=== PATIENT | male | born 2005 | race Two or more races ===

== ENCOUNTER 2024-11-12 06:19 | Inpatient (IN) | payer MEDICAID, SELFPAY ==
[2024-11-12] VITALS (63 sets, daily range): BP systolic 90–162; BP diastolic 48–123; PULSE 74–114; RESP 10–23; TEMP 35–36.8; O2SAT 97–100; BMI 25.6
[2024-11-12] MEDS: SODIUM CHLORIDE 0.9% 1000 ML 1,000 ML 999 ML IV ×2 (06:25→06:40)
[2024-11-12] MEDS: NALOXONE INJ 1 MG/ML SYRINGE 2 ML 2 MG IV (06:28)
[2024-11-12] MEDS: ROCURONIUM INJ 10 MG/ML VIAL 10 ML 50 MG IVP (06:30)
[2024-11-12] MEDS: ETOMIDATE INJ 2 MG/ML VIAL 10 ML 20 MG IVP (06:30)
--- NOTE | 2024-11-12 06:31 | XR_ITS ---
Examination: AP chest single view Technique one AP portable supine chest single view Exam date and time: November 12, 2024 0639 hrs. Indications: Altered mental status hypoxic respiratory failure today Findings: No significant cardiac enlargement Opacity in the left midlung consistent with pneumonia consider aspiration pneumonia Endotracheal tube tip 2.7 cm above daksha The orogastric tube is in the stomach satisfactory position Impression: Left midlung aspiration pneumonia Endotracheal tube tip 2.7 cm above daksha
--- NOTE | 2024-11-12 06:44 | XR_ITS ---
Examination: CT brain head without contrast. 2-D sagittal coronal reconstructions Date and time of exam:November 12, 2024 0700 hrs. Indications: Onset altered mental status today with hypoxic respiratory failure position. CTDI: vol (mGy):44.7 DLP: (mGycm):892 Technique: Multiple CT axial sections of the brain have been obtained, 5 mm slice thickness. Contrast has not been administered. 2-D sagittal, coronal reconstructions have been obtained Low dose protocols were performed. One or more of the following dose reduction techniques were used; automated exposure control, adjustment of the mA and/or KV according to patient size, use of iterative reconstruction technique. Findings: No significant ventricular enlargement. Intra-axial or extra-axial hemorrhage density is not seen. No mass effect or midline shift Basal cisterns are not remarkable. Fourth ventricle is midline. Cranial vault intact. Significant ethmoid sphenoid frontal left maxillary antral sinusitis Impression: Negative for acute hemorrhage, mass effect or midline shift As clinically warranted, brain MRI follow-up would best assess for anoxic/ischemic change
--- NOTE | 2024-11-12 06:44 | XR_ITS ---
Examination: CTA chest with intravenous contrast 2-D reconstructions 3-D reconstructions, vascular Date and time of exam: November 12, 2024 at 0719 hrs. Indications: Altered mental status with hypoxic respiratory failure postintubation this morning CTDI: vol (mGy) 7.14 DLP: (mGycm) 254 Technique: Multiple axial sections of the thorax have been obtained. 3 mm slice thickness, from below the hemidiaphragms to above the apices of the lungs. Mediastinal and lung density settings have been obtained. 2-D sagittal and coronal reconstructions. 3-D angiographic renderings, 3-D volume renderings, 3D post processing, vascular maximum intensity projections obtained. Contrast administered is 100 cc Isovue-370. Intravenous Low dose protocols were performed. One or more of the following dose reduction techniques were used; automated exposure control, adjustment of the mA and/or KV according to patient size, use of iterative reconstruction technique. Findings: Tracheal tube tip 2.6 cm above daksha Normal thoracic aorta Pulmonary artery segments are not enlarged, no pulmonary artery emboli Diffuse left lung pneumonia, severe in the left lower lobe, consider aspiration pneumonia No pulmonary edema Orogastric tube in the stomach Osseous structures are intact Impression: Tracheal tube tip 2.6 cm above daksha Negative for pulmonary artery emboli Diffuse left lung pneumonia, severe in the left lower lobe, consider aspiration pneumonia
--- NOTE | 2024-11-12 06:44 | XR_ITS ---
Examination: CT abdomen with intravenous contrast CT pelvis with intravenous contrast 2-D coronal reconstructions 2-D sagittal reconstructions Date and time of exam:November 12, 2024 at 0719 hrs. Indications: Altered mental status with acute hypoxic respiratory failure this morning. CTDI: vol (mGy) 7.14 DLP: (mGycm) 256 Technique: Multiple axial sections of the abdomen and pelvis have been obtained. 64 slice high-resolution scanner used. 3 mm axial sections have been obtained, post intravenous injection 100 cc Isovue-370 intravenous 2-D sagittal, coronal reconstructions obtained. Low dose protocols were performed. One or more of the following dose reduction techniques were used; automated exposure control, adjustment of the mA and/or KV according to patient size, use of iterative reconstruction technique. Findings: Prominent pneumonia left lower lobe No focal liver or splenic lesions No gallstones No pancreatic or adrenal mass No hydronephrosis Abdominal aorta intact, no free blood in the abdomen Negative for pneumoperitoneum Normal appendix No bowel obstruction Moderate to prominent stool in the rectosigmoid Normal seminal vesicles Normal prostate Urinary bladder Aguilar catheter with air in the urinary bladder No inguinal hernia defects Orogastric tube in the stomach Intact osseous structures Impression: Prominent left lower lobe pneumonia Normal appendix No bowel obstruction Orogastric tube in stomach satisfactory position
--- NOTE | 2024-11-12 06:45 | XR_ITS ---
Examination: CT cervical spine without contrast 2-D sagittal reconstructions 2-D coronal reconstructions 3-D reconstructions. Exam date and time:November 12, 2024 at 0700 hrs. Indications: Altered mental status this morning, with hypoxic respiratory failure, neck pain CTDI:vol (mGy) 7.80 DLP: (mGycm) 183 Technique: Multiple 2 mm axial sections of the cervical spine have been obtained. The coronal and sagittal reconstructions have been obtained. 3-D reconstructions have been obtained. Low dose protocols were performed. One or more of the following dose reduction techniques were used; automated exposure control, adjustment of the mA and/or KV according to patient size, use of iterative reconstruction technique. Findings: Axial sections demonstrate intact base of the skull. C1 exhibit satisfactory relationship to the odontoid. No acute cervical vertebral body fracture seen. Alignment posterior spinous processes satisfactory. Impression: No acute cervical fracture.
--- NOTE | 2024-11-12 06:45 | PC.NURSE ---
To ct scan via gurney on portable vent/monitor accompanied by RN and RT
--- NOTE | 2024-11-12 06:45 | PD.RESPROC ---
Procedures Procedure Date / Time 11/12/24 0645 Intubation Indication(s): acute Resp Failure and inability to protect airway Informed consent obtained: implied Time out done, and the following verified: correct patient, side and site, procedure, patient position and implants and/or equipment Sedative: etomidate Paralytic: rocuronium Laryngoscope: fiber optic video scope Assist device used: fiber optic device ET tube size: 8 Tube secured depth (cm): 23 Tube secured location: lips Tube placement confirmation: visualized tube passing through cords, equal breath sounds bilaterally, no breath sounds over epigastrium and confirmation by capnometry Patient tolerated procedure: no complications EBL(ml): 0 Intubation complications: none Additional comments: The patient required endotracheal intubation. The patient was given Etomidate?approx. 0.3 mg per kilogram and Rocuronium?approx. 1 mg per kilogram.Once the patient was adequately sedated and paralyzed, a?Mac 4?laryngoscope was used to directly visualize the cords. Using this direct visualization, a?8?endotracheal tube was then passed easily through the cords.This tube was inserted to?23 cm?at the lip.There was excellent color change on the end-tidal CO2 monitor. The patient was easily and adequately ventilated. There were appreciable breath sounds bilaterally with no breath sounds heard over the epigastrium. The tube was secured in the standard fashion. The patient tolerated this procedure well and there were no complications. Post-intubation chest x-ray demonstrates endotracheal tube placement at right position. Procedure was performed under supervision of ED physician, Dr.Kuah Dr. Santa MD, PGY 2
[2024-11-12 06:51] LABS: Lactate (Lactic Acid) 2.5 mMol/L (0.4-2.0)
[2024-11-12 06:51] LABS: Collection Type, Urine Catheter; Squamous Epithelial Cell,Urine 0 /hpf (0-5)
--- NOTE | 2024-11-12 06:52 | PC.NURSE ---
Do CT-Scan without labs per Dr. Castaneda.
[2024-11-12 07:02] LABS: Basophils % (Auto) 0 % (0-2.5); Eosinophils % (Auto) 0 % (0-10); Hematocrit 44.9 % (41.0-53.0); Hemoglobin 15.2 g/dL (13.5-16.0); Immature Granulocytes % (Auto) 1 % (0-0); Immature Granulocytes Auto 0.08 Thou/mm3 (0.00-0.00); Lymphocytes # (Auto) 1.2 Thou/mm3 (1.0-4.8); Lymphocytes % (Auto) 7 % (10-50); Mean Corpuscular HGB Conc 33.9 g/dl (31.0-37.0); Mean Corpuscular Hemoglobin 30.6 pg (25.0-35.0); Mean Corpuscular Volume 90 fL (80-100); Monocytes # (Auto) 0.7 Thou/mm3 (0.0-0.8); Monocytes % (Auto) 4 % (0-12); Neutrophils # (Auto) 15.3 Thou/mm3 (1.8-7.7); Neutrophils % (Auto) 88 % (37-80); Nucleated Red Blood Cell % 0 /100 WBC (0); Platelet Count 313 Thou/mm3 (140-440); RDW Standard Deviation 45.8 fL (35.1-43.9); Red Blood Count 4.97 Miln/mm3 (4.50-5.90); White Blood Count 17.3 Thou/mm3 (4.5-11.0)
[2024-11-12 07:10] LABS: Bilirubin,Urine Negative (Negative); Blood,Urine Negative (Negative); Clarity,Urine Clear (Clear/Hazy); Color,Urine Lt-Violet (Lt Yel-Yel); Culture Indicated,Urine Not Indicated; Glucose, Urine Negative (Negative); Ketones,Urine Negative (Negative); Leukocyte Esterase,Urine Negative (Negative); Nitrite,Urine Negative (Negative); Protein,Urine Negative (Neg - Trace); RBC,Urine 2 /hpf (0-3); Specific Gravity,Urine 1.006 (1.001-1.035); Urobilinogen,Urine Negative mg/dL (0.0-1.0); WBC,Urine 1 /hpf (0-5)
[2024-11-12 07:14] LABS: Partial Thromboplastin Time 25.8 Seconds (22.0-36.0); Prothrombin Time 10.7 Seconds (9.0-12.2)
[2024-11-12 07:17] LABS: Amphetamine/Methamp Scrn,U Negative (Negative); Barbiturate Screen,Urine Negative (Negative); Benzodiazepines Screen,Urine Negative (Negative); Benzoylecgonine Screen, Ur Negative (Negative); Fentanyl Screen,Urine Negative (Negative); Opiate Screen,Urine Negative (Negative); THC Screen,Urine Negative (Negative)
[2024-11-12] MEDS: PROPOFOL INJ 10 MG/ML VIAL 20 ML 100 MG IV (07:20)
[2024-11-12 07:29] LABS: Procalcitonin 0.06 ng/ml (0.0-0.49); Troponin I < 0.002 ng/mL (0.0-0.045)
[2024-11-12 07:32] LABS: Alcohol, Blood Medical 513.5 mg/dL (0-10.0)
[2024-11-12 08:02] LABS: Base Excess -5 (-3-3); HCO3 22 mEq/L (20-26); Inspired Oxygen, FIO2 100 %; O2 Saturation 100 % (91-98); PCO2 45 mmHg (32.0-48.0); PO2 250 mmHg (83-108); pH, Arterial 7.29 (7.35-7.45)
[2024-11-12 08:04] LABS: Allen Test Performed/OK; Puncture Site Left Radial
[2024-11-12] MEDS: PROPOFOL 1,000 MG IVPB 1,000 MG/100 ML VIAL 1.905 MG IV (08:48)
--- NOTE | 2024-11-12 09:16 | PD.EDAMS ---
Altered Mental Status RME/HPI General Chief Complaint: Altered Mental Status Stated Complaint: RESPIRATORY FAILURE Time Seen by Provider: 11/12/24 06:50 Arrival date/time: 11/12/24 06:19 RME / HPI RME / HPI narrative: DR. PAGE MAIN ED EVALUATION: 19 year old male presents to the Emergency Department [facility] with complaint of altered mentation, patient found by family. EMS gave Narcan with questionable response. Then, here we gave 2 more Narcan with no response. No ROS due to altered mentation. Related Data Allergies Allergy/AdvReac Type Severity Reaction Status Date / Time No Known Allergies Allergy Verified 11/12/24 06:53 Review of Systems Review of Systems ROS Unobtainable: unobtainable due to mental status Past Medical History Past Medical History CARDIAC: Negative Congestive Heart Failure RESPIRATORY: Negative Chronic Obstructive Pulmonary Disease (COPD) GENITOURINARY: Negative Renal Disease ENDOCRINE: Negative Diabetes Mellitus Type 1 or Diabetes Mellitus Type 2 Social History SMOKING STATUS: Unknown if ever smoked ED Exam Narrative Physical exam: GENERAL APPEARANCE: Unresponsive even with painful stimuli. HEENT: Pinpoint pupils bilaterally. Dry blood on the lips. Oropharynx clear. NECK: Supple without lymphadenopathy. HEART: Normal rate and regular rhythm, normal S1/S1, no m/r/g LUNGS: CTAB, moving air well. No crackles or wheezes are heard. ABDOMEN: Soft, nontender, nondistended with good bowel sounds heard. BACK: No midline C/T/L spine pain or deformity, No CVAT, no obvious deformity. EXTREMITIES: Without cyanosis, clubbing or edema. MUSCULOSKELETAL: No deformity. NEUROLOGICAL: Unresponsive, unobtainable. Skin: Warm and dry without any rash. Course Quality Measures none Orders Category Date Time Status CT Screening NOW Care 11/12/24 06:44 Completed Aguilar [Urinary Catheter] QS Care 11/12/24 06:40 Active Insert NG / OG tube NOW Care 11/12/24 06:34 Active Intubation NOW Care 11/12/24 06:[address] abdomen pelvis w con Stat Exams 11/12/24 06:[address] angio chest Stat Exams 11/12/24 06:[address] cervical spine wo con Stat Exams 11/12/24 06:[address] head/brain wo con Stat Exams 11/12/24 06:44 Completed XR chest 1V post procedure Stat Exams 11/12/24 06:31 Completed Alcohol, Blood Medical Stat Lab 11/12/24 06:27 Completed Arterial Blood Gas Stat Lab 11/12/24 07:51 Completed CBC [CBC] Stat Lab 11/12/24 06:27 Completed Drug Screen,Urine Stat Lab 11/12/24 06:31 Completed Lactate (Lactic Acid) Stat Lab 11/12/24 06:27 Completed PT [Prothrombin Time with INR] Stat Lab 11/12/24 06:27 Completed PTT [Partial Thromboplastin Time] Stat Lab 11/12/24 06:27 Completed Procalcitonin Stat Lab 11/12/24 06:27 Completed Sputum Culture and Gram Stain Routine Lab 11/12/24 07:00 Received Troponin I Stat Lab 11/12/24 06:27 Completed Urinalysis, C/S if Indicated Stat Lab 11/12/24 06:32 Completed Dextrose 5%-Water [D5w] 498 ml Med 11/12/24 07:00 Discontinued NALOXONE INJ (Syringe) [Narcan Inj (Syringe)] 2 mg IV 10 mls/hr Dextrose 5%-Water [D5w] 498 ml Med 11/12/24 07:00 Discontinued NALOXONE INJ (Syringe) [Narcan Inj (Syringe)] 2 mg IV 10 mls/hr Etomidate Inj [Amidate Inj] Med 11/12/24 06:18 Discontinued 20 mg .ROUTE .STK-MED ONE Etomidate Inj [Amidate Inj] Med 11/12/24 06:31 Discontinued 20 mg IVP X1 ONE NALOXONE INJ (Syringe) [Narcan Inj (Syringe)] Med 11/12/24 06:18 Discontinued 2 mg .ROUTE .STK-MED ONE NALOXONE INJ (Syringe) [Narcan Inj (Syringe)] Med 11/12/24 07:01 Discontinued 2 mg IV X1 ONE Propofol 1,000 mg Ivpb [Diprivan Ivpb] Med 11/12/24 06:46 Active 1,000 mg in 100 ml IV 5 mcg/kg/min Propofol Inj [Diprivan Inj] Med 11/12/24 07:08 Discontinued 100 mg IV X1 ONE Rocuronium Inj [Zemuron Inj] Med 11/12/24 06:19 Discontinued 100 mg .ROUTE .STK-MED ONE Rocuronium Inj [Zemuron Inj] Med 11/12/24 06:45 Discontinued 50 mg IVP X1 ONE Sodium Chloride 0.9% 1000 ml [Ns] 1,000 ml Med 11/12/24 06:47 Discontinued IV 999 mls/hr Sodium Chloride 0.9% 1000 ml [Ns] 1,000 ml Med 11/12/24 06:48 Discontinued IV 999 mls/hr Sodium Chloride Rt Twyla 10% [NS Rt Twyla 10%] Med 11/12/24 06:47 Discontinued 5 ml INH X1 ONE Mechanical [Volume Ventilator] Stat RT 11/12/24 Active Vital Signs Vital signs: Vital Signs Temperature 95 F L 11/12/24 06:22 Pulse Rate 92 11/12/24 06:22 Respiratory Rate 10 L 11/12/24 06:22 Blood Pressure 90/65 11/12/24 06:22 Pulse Oximetry (%) 100 11/12/24 06:22 Oxygen Delivery Method Cool Mist 11/12/24 06:22 Oxygen Flow Rate 15 11/12/24 06:22 Altered Mental Status MDM Narrative MDM Narrative:: IVianney am scribing for and in the presence of Dr. Page. Patient data External records reviewed:: EMS form Clinical information provided by:: EMS Social determinants that could affect healthcare access:: none Patient has the following chronic illnesses:: No known PMHx, surgeries, daily medications, or known allergies. How is presenting disease/condition affected by chronic disease/condition?: no chronic disease Evaluation data The following diagnostics were reviewed and interpreted by me:: lab results and radiology exam(s) Lab and/or radiology exams considered but not ordered:: none Interpretation Summary: Procedure(s): CT cervical spine wo con Accession Number(s): [id number] cc: Pascual Page MD; Santos Ortiz MD; NO PRIMARY/FAMILY,PHYSICIAN~ Examination: CT cervical spine without contrast 2-D sagittal reconstructions 2-D coronal reconstructions 3-D reconstructions. Exam date and time:November 12, 2024 at 0700 hrs. Indications: Altered mental status this morning, with hypoxic respiratory failure, neck pain CTDI:vol (mGy) 7.80 DLP: (mGycm) 183 Technique: Multiple 2 mm axial sections of the cervical spine have been obtained. The coronal and sagittal reconstructions have been obtained. 3-D reconstructions have been obtained. Low dose protocols were performed. One or more of the following dose reduction techniques were used; automated exposure control, adjustment of the mA and/or KV according to patient size, use of iterative reconstruction technique. Findings: Axial sections demonstrate intact base of the skull. C1 exhibit satisfactory relationship to the odontoid. No acute cervical vertebral body fracture seen. Alignment posterior spinous processes satisfactory. Impression: No acute cervical fracture. Dictated By: Santos Ortiz MD Procedure(s): CT head/brain wo con Accession Number(s): [id number] cc: Pascual Page MD; Santos Ortiz MD; NO PRIMARY/FAMILY,PHYSICIAN~ Examination: CT brain head without contrast. 2-D sagittal coronal reconstructions Date and time of exam:November 12, 2024 0700 hrs. Indications: Onset altered mental status today with hypoxic respiratory failure position. CTDI: vol (mGy):44.7 DLP: (mGycm):892 Technique: Multiple CT axial sections of the brain have been obtained, 5 mm slice thickness. Contrast has not been administered. 2-D sagittal, coronal reconstructions have been obtained Low dose protocols were performed. One or more of the following dose reduction techniques were used; automated exposure control, adjustment of the mA and/or KV according to patient size, use of iterative reconstruction technique. Findings: No significant ventricular enlargement. Intra-axial or extra-axial hemorrhage density is not seen. No mass effect or midline shift Basal cisterns are not remarkable. Fourth ventricle is midline. Cranial vault intact. Significant ethmoid sphenoid frontal left maxillary antral sinusitis Impression: Negative for acute hemorrhage, mass effect or midline shift As clinically warranted, brain MRI follow-up would best assess for anoxic/ischemic change Dictated By: Santos Ortiz MD Procedure(s): CT angio chest Accession Number(s): [id number] cc: Pascual Page MD; Santos Ortiz MD; NO PRIMARY/FAMILY,PHYSICIAN~ Examination: CTA chest with intravenous contrast 2-D reconstructions 3-D reconstructions, vascular Date and time of exam: November 12, 2024 at 0719 hrs. Indications: Altered mental status with hypoxic respiratory failure postintubation this morning CTDI: vol (mGy) 7.14 DLP: (mGycm) 254 Technique: Multiple axial sections of the thorax have been obtained. 3 mm slice thickness, from below the hemidiaphragms to above the apices of the lungs. Mediastinal and lung density settings have been obtained. 2-D sagittal and coronal reconstructions. 3-D angiographic renderings, 3-D volume renderings, 3D post processing, vascular maximum intensity projections obtained. Contrast administered is 100 cc Isovue-370. Intravenous Low dose protocols were performed. One or more of the following dose reduction techniques were used; automated exposure control, adjustment of the mA and/or KV according to patient size, use of iterative reconstruction technique. Findings: Tracheal tube tip 2.6 cm above daksha Normal thoracic aorta Pulmonary artery segments are not enlarged, no pulmonary artery emboli Diffuse left lung pneumonia, severe in the left lower lobe, consider aspiration pneumonia No pulmonary edema Orogastric tube in the stomach Osseous structures are intact Impression: Tracheal tube tip 2.6 cm above daksha Negative for pulmonary artery emboli Diffuse left lung pneumonia, severe in the left lower lobe, consider aspiration pneumonia Dictated By: Santos Ortiz MD Procedure(s): CT abdomen pelvis w con Accession Number(s): [id number] cc: Pascual Page MD; Santos Ortiz MD; NO PRIMARY/FAMILY,PHYSICIAN~ Examination: CT abdomen with intravenous contrast CT pelvis with intravenous contrast 2-D coronal reconstructions 2-D sagittal reconstructions Date and time of exam:November 12, 2024 at 0719 hrs. Indications: Altered mental status with acute hypoxic respiratory failure this morning. CTDI: vol (mGy) 7.14 DLP: (mGycm) 256 Technique: Multiple axial sections of the abdomen and pelvis have been obtained. 64 slice high-resolution scanner used. 3 mm axial sections have been obtained, post intravenous injection 100 cc Isovue-370 intravenous 2-D sagittal, coronal reconstructions obtained. Low dose protocols were performed. One or more of the following dose reduction techniques were used; automated exposure control, adjustment of the mA and/or KV according to patient size, use of iterative reconstruction technique. Findings: Prominent pneumonia left lower lobe No focal liver or splenic lesions No gallstones No pancreatic or adrenal mass No hydronephrosis Abdominal aorta intact, no free blood in the abdomen Negative for pneumoperitoneum Normal appendix No bowel obstruction Moderate to prominent stool in the rectosigmoid Normal seminal vesicles Normal prostate Urinary bladder Aguilar catheter with air in the urinary bladder No inguinal hernia defects Orogastric tube in the stomach Intact osseous structures Impression: Prominent left lower lobe pneumonia Normal appendix No bowel obstruction Orogastric tube in stomach satisfactory position Dictated By: Santos Ortiz MD Procedure(s): XR chest 1V post procedure Accession Number(s): [id number] cc: Pascual Page MD; Santos Ortiz MD; NO PRIMARY/FAMILY,PHYSICIAN~ Examination: AP chest single view Technique one AP portable supine chest single view Exam date and time: November 12, 2024 0639 hrs. Indications: Altered mental status hypoxic respiratory failure today Findings: No significant cardiac enlargement Opacity in the left midlung consistent with pneumonia consider aspiration pneumonia Endotracheal tube tip 2.7 cm above daksha The orogastric tube is in the stomach satisfactory position Impression: Left midlung aspiration pneumonia Endotracheal tube tip 2.7 cm above daksha Dictated By: Santos Ortiz MD Medications / Prescriptions Medications or Prescriptions considered but not ordered:: none Medication administrations:: Medication Administration History Propofol (Diprivan Ivpb) 1,000 mg in 100 mls @ 1.905 mls/hr IV .Q24H PRN; Protocol PRN Reason: PER PROTOCOL Stop: 12/12/24 06:45 Last Titration: 11/12/24 10:25 Dose: 25 mcg/kg/min, 9.525 mls/hr Documented By: Titration: 11/12/24 10:02 Dose: 10 mcg/kg/min, 3.81 mls/hr Documented By: Admin: 11/12/24 08:48 Dose: 5 mcg/kg/min, 1.905 mls/hr Documented By: CHACORTA Co-signed By: MARINA Multivitamins/Minerals 10 ml/ (Sodium Chloride) 1,010 mls @ 100 mls/hr IV X1 ONE Stop: 11/12/24 19:50 Last Admin: 11/12/24 10:24 Dose: 100 mls/hr Documented By: CHACORTA Pharmacy Consult (Pharmacy Renal Dose Adjustment 1 Ea) 1 each XX QDAY PRN PRN Reason: CONSULT Stop: 12/12/24 08:59 Discontinued Medications Etomidate (Etomidate Inj 2 Mg/Ml Vial 10 Ml) Confirm Administered Dose 20 mg .ROUTE .STK-MED ONE Stop: 11/12/24 06:19 Last Admin: 11/12/24 06:51 Dose: Not Given Documented By: EE Non-Admin Reason: Override Medication Etomidate (Etomidate Inj 2 Mg/Ml Vial 10 Ml) 20 mg IVP X1 ONE Stop: 11/12/24 06:32 Last Admin: 11/12/24 06:30 Dose: 20 mg Documented By: TIM Sodium Chloride (Ns) 1,000 mls @ 999 mls/hr IV .Q1H1M ONE Stop: 11/12/24 07:47 Last Infusion: 11/12/24 07:37 Dose: Infused Documented By: Admin: 11/12/24 06:25 Dose: 999 mls/hr Documented By: TIM Sodium Chloride (Ns) 1,000 mls @ 999 mls/hr IV .Q1H1M ONE Stop: 11/12/24 07:48 Last Infusion: 11/12/24 09:18 Dose: Infused Documented By: Admin: 11/12/24 06:40 Dose: 999 mls/hr Documented By: TIM Naloxone HCl 2 mg/ Dextrose 500 mls @ 10 mls/hr IV .Q24H [facility] Stop: 12/12/24 06:59 Naloxone HCl 2 mg/ Dextrose 500 mls @ 10 mls/hr IV .Q24H [facility] Stop: 12/12/24 06:59 Naloxone HCl (Naloxone Inj 1 Mg/Ml Syringe 2 Ml) Confirm Administered Dose 2 mg .ROUTE .STK-MED ONE Stop: 11/12/24 06:19 Last Admin: 11/12/24 06:51 Dose: Not Given Documented By: EE Non-Admin Reason: Override Medication Naloxone HCl (Naloxone Inj 1 Mg/Ml Syringe 2 Ml) 2 mg IV X1 ONE Stop: 11/12/24 07:02 Last Admin: 11/12/24 06:28 Dose: 2 mg Documented By: DAREN Propofol (Propofol Inj 10 Mg/Ml Vial 20 Ml) 100 mg IV X1 ONE Stop: 11/12/24 07:09 Last Admin: 11/12/24 07:20 Dose: 100 mg Documented By: MARINA Rocuronium [place] (Rocuronium Inj 10 Mg/Ml Vial 10 Ml) Confirm Administered Dose 100 mg .ROUTE .STK-MED ONE Stop: 11/12/24 06:20 Last Admin: 11/12/24 06:51 Dose: Not Given Documented By: TIM Non-Admin Reason: Override Medication Rocuronium [place] (Rocuronium Inj 10 Mg/Ml Vial 10 Ml) 50 mg IVP X1 ONE Stop: 11/12/24 06:46 Last Admin: 11/12/24 06:30 Dose: 50 mg Documented By: TIM Co-signed By: GENOVEVA Sodium Chloride (Sodium Chloride Rt 10% 15 Ml Nebu) 5 ml INH X1 ONE Stop: 11/12/24 06:48 Last Admin: 11/12/24 10:53 Dose: Not Given Documented By: KAMARI Non-Admin Reason: did not need see above Consultations Consultation(s) initiated? (list below): Yes Consultation #1 (Physician, Specialty, Details): Discussed test HPI, PMHx, lab, radiology results and/or management with Dr. Gee Aguiar. Will admit for further evaluation and management. Accepts patient for admission to ICU. Time: 08:40 Diagnosis Differential diagnosis altered mental status: alcoholic intoxication, altered mental status and subarachnoid hemorrhage Most likely diagnosis given after review of the tests above:: Alcohol intoxication Aspiration pneumonia Respiratory failure Admission Indicated Admission indicated?: indicated Admission Request Was there a request for admission?: Yes Admission Attestation Admission request attestation: Discussed case with [] from Hospitalist service regarding admission. Discussed patients ED course, exam findings, labs, and radiology results. The Hospitalist [agrees,declines] to accept the patient for admission. Disposition Plan Disposition Plan: Admit Critical Care Time Critical Care Time Critical Care Time: Yes Total Critical Care Time (min.): 35 Attestation: The high probability of sudden, clinically significant deterioration in the patient?s condition required the highest level of my preparedness to intervene urgently. The services I provided to this patient were to treat and/or prevent clinically significant deterioration. Services included the following: chart data review, reviewing nursing notes and/or old charts, documentation time, business system consultant collaboration regarding findings and treatment options, medication orders and management, direct patient care, vital sign assessments and ordering, interpreting and reviewing diagnostic studies and lab tests. Aggregate critical care time includes only time during which I was engaged in work directly related to the patient?s care, as described above, whether at bedside or elsewhere in the Emergency Department. It did not include time spent performing other reported procedures or the services of residents, students, nurses or physician assistants. Discharge Plan Plan Patient Disposition: Admit Acute Care w/in Hospital Problem List Clinical Impression: Alcoholic intoxication, Aspiration pneumonia, Respiratory failure
[2024-11-12 09:46] LABS: Basophils % (Auto) 0 % (0-2.5); Eosinophils # (Auto) 0.1 Thou/mm3 (0.0-0.5); Eosinophils % (Auto) 0 % (0-10); Hematocrit 43.5 % (41.0-53.0); Hemoglobin 15.2 g/dL (13.5-16.0); Immature Granulocytes % (Auto) 1 % (0-0); Immature Granulocytes Auto 0.12 Thou/mm3 (0.00-0.00); Lymphocytes # (Auto) 0.7 Thou/mm3 (1.0-4.8); Lymphocytes % (Auto) 4 % (10-50); Mean Corpuscular HGB Conc 34.9 g/dl (31.0-37.0); Mean Corpuscular Volume 89 fL (80-100); Monocytes # (Auto) 0.8 Thou/mm3 (0.0-0.8); Monocytes % (Auto) 4 % (0-12); Neutrophils # (Auto) 17.2 Thou/mm3 (1.8-7.7); Neutrophils % (Auto) 91 % (37-80); Nucleated Red Blood Cell % 0 /100 WBC (0); Platelet Count 254 Thou/mm3 (140-440); RDW Standard Deviation 45.5 fL (35.1-43.9); White Blood Count 18.9 Thou/mm3 (4.5-11.0)
[2024-11-12 09:49] LABS: Reflex Lactate? Y
[2024-11-12 10:05] LABS: Alanine Aminotransferase 23 U/L (10-49); Albumin, Serum 4.1 gm/dL (3.5-5.0); Albumin/Globulin Ratio 1.5 (1.2-2.2); Alkaline Phosphatase 105 U/L (46-116); Anion Gap 14 (7-16); Aspartate Amino Transferase 36 U/L (0-34); BUN/Creatinine Ratio 12 Ratio (12-20); Bilirubin,Total 0.5 mg/dL (0.3-1.2); Blood Urea Nitrogen 6 mg/dL (9-23); Calcium 7.8 mg/dL (8.3-10.6); Calcium (Corrected) 7.8 mg/dL (8.5-10.1); Chloride 107 mMol/L (98-107); Creatine Kinase 310 U/L (34-171); Creatinine (Component) 0.5 mg/dL (0.6-1.3); Globulin 2.7 gm/dL (2.3-3.5); Glucose 118 mg/dL (74-106); Magnesium 1.8 mg/dL (1.6-2.6); Osmolality,Calculated 278 (275-295); Phosphorous 2.4 mg/dL (2.4-5.1); Potassium 3.8 mMol/L (3.4-5.1); Sodium 140 mMol/L (136-145); Total Protein 6.8 gm/dL (5.7-8.2); eGFR > 60 See Note
[2024-11-12] MEDS: MULTIVITAMIN INJ 10 ML in SODIUM CHLORIDE 0.9% 1000 ML 1,000 ML 100 ML IV (10:24)
--- NOTE | 2024-11-12 10:55 | PD.RESHP ---
Documentation for date of: 11/12/24 [facility] History of Present Illness History of present illness: Anish Ruiz is a 19-year-old male with no known past medical history who presented to the ED on 11/12 after being found unconscious. Per aunt at bedside, patient was at a friend's house and drank one bottle of hard liquor of unknown amount. The next morning, he was found unresponsive by his aunt but experiencing episodes of hemoptysis, prompting her to call EMS. He was given 2 doses of narcan on scene without response. Per aunt, he has one to two beers per week. Upon arrival to ED, patient was intubated due to inability to protect airways, sedated on propofol drip, and given 2 L boluses of NS. Imaging showed diffuse left-sided pneumonia (severe in LLL), likely aspiration given clinical picture and started on ceftriaxone. Otherwise, CT head, CT A/P, and CT cervical spine negative. Other than EtOH levels of 513 u-tox negative, LFTs wnl, lactate 2.3, and total CK 310. Admitted to ICU for further management. Review of Systems Review of Systems ROS Unobtainable: due to endotracheal tube Exam Vital Signs Temp Pulse Resp BP Pulse Ox O2 Del Method O2 Flow Rate 96.1 F L 89 16 106/62 100 Mechanical Ventilation 15 11/12/24 07:55 11/12/24 10:23 11/12/24 07:55 11/12/24 10:23 11/12/24 10:23 11/12/24 07:55 11/12/24 06:22 FiO2 35 11/12/24 10:23 Narrative Exam General: intubated, sedated, and mechanically ventilated HEENT: NC/AT, mucous membranes moist, bilateral sclera anicteric Cardiovascular: regular rate and rhythm, S1/S2 present, no murmurs appreciated Pulmonary: clear to auscultation bilaterally, no rales/rhonchi/wheezes Abdominal: soft, non-tender, non-distended, no rebound/guarding, normal bowel sounds present Musculoskeletal: normal ROM, no peripheral edema Skin: warm and dry, intact, no rashes Neuro: GCS 3T Results: Labs 11/12/24 09:30 11/12/24 09:30 Labs: Short CBC 11/12/24 11/12/24 Range/Units 06:27 09:30 WBC 17.3 H 18.9 H (4.5-11.0) Thou/mm3 Hgb 15.2 15.2 (13.5-16.0) g/dL Hct 44.9 43.5 (41.0-53.0) % Plt Count 313 254 D (140-440) Thou/mm3 BMP 11/12/24 11/12/24 06:27 09:30 Sodium Cancelled 140 Potassium Cancelled 3.8 Chloride Cancelled 107 Carbon Dioxide Cancelled 19.0 L BUN Cancelled 6 L Creatinine Cancelled 0.5 L Glucose Cancelled 118 H Calcium Cancelled 7.8 L Cardiac Enzymes 11/12/24 11/12/24 Range/Units 06:27 09:30 Total Creatine Kinase 310 H (34-171) U/L Troponin I < 0.002 (0.0-0.045) ng/mL Liver Function 11/12/24 Range/Units 09:30 Total Bilirubin 0.5 (0.3-1.2) mg/dL AST 36 H (0-34) U/L ALT 23 (10-49) U/L Alkaline Phosphatase 105 (46-116) U/L Albumin 4.1 (3.5-5.0) gm/dL Urine 11/12/24 Range/Units 06:32 Urine Color Lt-Sofi A (Lt Yel-Yel) Urine Clarity Clear (Clear/Hazy) Urine pH 6.0 (5.0-7.0) Ur Specific [place] 1.006 (1.001-1.035) Urine Protein Negative (Neg - Trace) Urine Glucose (UA) Negative (Negative) ABG Interpretation ABG results: 11/12/24 07:51 ABG pH 7.29 L ABG pCO2 45 ABG pO2 250 H ABG HCO3 22 ABG O2 Saturation 100 H ABG Base Excess -5 L Quality Measures Quality Measures VTE prophylaxis Medications Home Medications and Allergies Allergies Allergy/AdvReac Type Severity Reaction Status Date / Time No Known Allergies Allergy Verified 11/12/24 06:53 Visit Medications Propofol (Diprivan Ivpb) 1,000 mg in 100 mls @ 1.905 mls/hr IV .Q24H PRN; Protocol PRN Reason: PER PROTOCOL Stop: 12/12/24 06:45 Last Titration: 11/12/24 10:25 Dose: 25 mcg/kg/min, 9.525 mls/hr Multivitamins/Minerals 10 ml/ (Sodium Chloride) 1,010 mls @ 100 mls/hr IV X1 ONE Stop: 11/12/24 19:50 Last Admin: 11/12/24 10:24 Dose: 100 mls/hr Pharmacy Consult (Pharmacy Renal Dose Adjustment 1 Ea) 1 each XX QDAY PRN PRN Reason: CONSULT Stop: 12/12/24 08:59 Discontinued Medications Etomidate (Etomidate Inj 2 Mg/Ml Vial 10 Ml) 20 mg IVP X1 ONE Stop: 11/12/24 06:32 Last Admin: 11/12/24 06:30 Dose: 20 mg Sodium Chloride (Ns) 1,000 mls @ 999 mls/hr IV .Q1H1M ONE Stop: 11/12/24 07:47 Last Infusion: 11/12/24 07:37 Dose: Infused Sodium Chloride (Ns) 1,000 mls @ 999 mls/hr IV .Q1H1M ONE Stop: 11/12/24 07:48 Last Infusion: 11/12/24 09:18 Dose: Infused Naloxone HCl 2 mg/ Dextrose 500 mls @ 10 mls/hr IV .Q24H [facility] Stop: 12/12/24 06:59 Naloxone HCl 2 mg/ Dextrose 500 mls @ 10 mls/hr IV .Q24H [facility] Stop: 12/12/24 06:59 Naloxone HCl (Naloxone Inj 1 Mg/Ml Syringe 2 Ml) 2 mg IV X1 ONE Stop: 11/12/24 07:02 Last Admin: 11/12/24 06:28 Dose: 2 mg Propofol (Propofol Inj 10 Mg/Ml Vial 20 Ml) 100 mg IV X1 ONE Stop: 11/12/24 07:09 Last Admin: 11/12/24 07:20 Dose: 100 mg Rocuronium [place] (Rocuronium Inj 10 Mg/Ml Vial 10 Ml) 50 mg IVP X1 ONE Stop: 11/12/24 06:46 Last Admin: 11/12/24 06:30 Dose: 50 mg Sodium Chloride (Sodium Chloride Rt 10% 15 Ml Nebu) 5 ml INH X1 ONE Stop: 11/12/24 06:48 Last Admin: 11/12/24 10:53 Dose: Not Given Assessment & Plan Plan Anish Ruiz is a 19-year-old male with no known past medical history who presented to the ED on 11/12 after being found unconscious. Per aunt at bedside, patient was at a friend's house and drank one bottle of hard liquor of unknown amount. The next morning, he was found unresponsive by his aunt but experiencing episodes of hemoptysis, prompting her to call EMS. He was given 2 doses of narcan on scene without response. Per aunt, he has one to two beers per week. Upon arrival to ED, patient was intubated due to inability to protect airways, sedated on propofol drip, and given 2 L boluses of NS. Imaging showed diffuse left-sided pneumonia (severe in LLL), likely aspiration given clinical picture and started on ceftriaxone. Otherwise, CT head, CT A/P, and CT cervical spine negative. Other than EtOH levels of 513 u-tox negative, LFTs wnl, lactate 2.3, and total CK 310. Admitted to ICU for further management. Neurological #Sedated on propofol ? RASS goal of -3 Cardiovascular No acute/active disease Pulmonary #Intubated and mechanically ventilated due to inability to protect airway ? Vent settings: A/CMV, VC, VT 400, RR 20, PEEP 5, FiO2 35% -> 30% Gastrointestinal #Severe ethanol intoxication requiring intubation Found unresponsive on scene and intubated in ED on 11/12. Per aunt, patient does not consume significant amount of alcohol regularly which is consistent with normal LFTs. EtOH levels 513. ? Banana bag Renal # Anion gap metabolic acidosis, secondary to #Lactic acidosis in setting of ethanol intoxication ABG on 11/12: pH 7.29, pCO2 45, pO2 250 S/p 2 L NS in ED Lactate 2.5 -> 2.3 -> 2.6 ? Follow-up lactate #Hypocalcemia ? Follow-up AM labs after banana bag Heme/onc #Leukocytosis in setting of aspiration pneumonia ? See infectious disease below Endocine No acute/active disease Infectious disease #Aspiration pneumonia vs pneumonitis Imaging shows left-lung pneumona, likely aspiration in setting of severe alcohol intoxication. No recorded fevers, although hypothermic at 95 ?F and initial WBC 17.3 and up trended to 18.9. ? Ceftriaxone 1 g IV daily ? Follow-up sputum culture (11/12) Hospital management: Disposition: intubated in ICU due to severe alcohol intoxication Drips: propofol Fluids: banana bag Diet: NPO Lines: PIV DVT prophylaxis: SCD given episodes of hemoptysis Aguilar: placed CODE STATUS: full code ----- Plan discussed with attending physician Dr. Britt Aguiar MD PGY-1 Internal Medicine
[2024-11-12 11:19] LABS: Lactic Acid, 3 HR 2.3 mMol/L (0.4-2.0)
[2024-11-12] MEDS: cefTRIAXone 1,000 MG in SODIUM CHLORIDE 0.9% (Popper) 50 ML 100 MG IV (11:56)
[2024-11-12 17:42] LABS: Lactate (Lactic Acid) 2.6 mMol/L (0.4-2.0)
[2024-11-12] MEDS: PROPOFOL 1,000 MG IVPB 1,000 MG/100 ML VIAL 17.146 MG IV (19:00)
[2024-11-12 20:41] LABS: Reflex Lactate? Y
[2024-11-12 21:15] LABS: Lactic Acid, 3 HR 2.9 mMol/L (0.4-2.0)
[2024-11-13] VITALS (73 sets, daily range): BP systolic 116–147; BP diastolic 55–93; PULSE 77–112; RESP 16–100; TEMP 36.8–37.7; O2SAT 95–100
[2024-11-13] MEDS: PROPOFOL 1,000 MG IVPB 1,000 MG/100 ML VIAL 19.051 MG IV (04:00)
[2024-11-13 04:55] LABS: Base Excess 0 (-3-3); HCO3 24 mEq/L (20-26); Inspired Oxygen, FIO2 30 %; O2 Saturation 99 % (91-98); PCO2 37 mmHg (32.0-48.0); PO2 107 mmHg (83-108); pH, Arterial 7.42 (7.35-7.45)
[2024-11-13 04:56] LABS: Allen Test Performed/OK; Puncture Site Right Radial
[2024-11-13 06:04] LABS: Basophils # (Auto) 0.1 Thou/mm3 (0.0-0.2); Basophils % (Auto) 0 % (0-2.5); Eosinophils % (Auto) 0 % (0-10); Hematocrit 41.7 % (41.0-53.0); Hemoglobin 14.2 g/dL (13.5-16.0); Immature Granulocytes % (Auto) 1 % (0-0); Immature Granulocytes Auto 0.08 Thou/mm3 (0.00-0.00); Lymphocytes # (Auto) 0.7 Thou/mm3 (1.0-4.8); Lymphocytes % (Auto) 4 % (10-50); Mean Corpuscular HGB Conc 34.1 g/dl (31.0-37.0); Mean Corpuscular Hemoglobin 30.5 pg (25.0-35.0); Mean Corpuscular Volume 90 fL (80-100); Monocytes # (Auto) 0.9 Thou/mm3 (0.0-0.8); Monocytes % (Auto) 5 % (0-12); Neutrophils # (Auto) 14.4 Thou/mm3 (1.8-7.7); Neutrophils % (Auto) 90 % (37-80); Nucleated Red Blood Cell % 0 /100 WBC (0); Platelet Count 244 Thou/mm3 (140-440); RDW Standard Deviation 45.8 fL (35.1-43.9); Red Blood Count 4.66 Miln/mm3 (4.50-5.90); White Blood Count 16.1 Thou/mm3 (4.5-11.0)
[2024-11-13 06:32] LABS: Alanine Aminotransferase 14 U/L (10-49); Albumin, Serum 4.2 gm/dL (3.5-5.0); Albumin/Globulin Ratio 1.6 (1.2-2.2); Alkaline Phosphatase 102 U/L (46-116); Anion Gap 14 (7-16); Aspartate Amino Transferase 31 U/L (0-34); BUN/Creatinine Ratio 22 Ratio (12-20); Bilirubin,Total 0.4 mg/dL (0.3-1.2); Blood Urea Nitrogen 13 mg/dL (9-23); Calcium 9.5 mg/dL (8.3-10.6); Calcium (Corrected) 9.5 mg/dL (8.5-10.1); Carbon Dioxide 21.1 mMol/L (20.0-31.0); Chloride 104 mMol/L (98-107); Creatinine (Component) 0.6 mg/dL (0.6-1.3); Estimated Creatinine Clearance 119.7 mL/min (>60); Globulin 2.6 gm/dL (2.3-3.5); Glucose 89 mg/dL (74-106); Osmolality,Calculated 276 (275-295); Phosphorous 2.2 mg/dL (2.4-5.1); Sodium 139 mMol/L (136-145); Total Protein 6.8 gm/dL (5.7-8.2); eGFR > 60 See Note
[2024-11-13] MEDS: cefTRIAXone 1,000 MG in SODIUM CHLORIDE 0.9% (Popper) 50 ML 100 MG IV (08:14)
--- NOTE | 2024-11-13 10:10 | PD.RESPRO ---
Documentation for date of: 11/13/24 Subjective Subjective Interval history: Anish Ruiz is a 19-year-old male with no known past medical history who presented to the ED on 11/12 after being found unconscious. Per aunt at bedside, patient was at a friend's house and drank one bottle of hard liquor of unknown amount. The next morning, he was found unresponsive by his aunt but experiencing episodes of hemoptysis, prompting her to call EMS. He was given 2 doses of narcan on scene without response. Per aunt, he has one to two beers per week. Upon arrival to ED, patient was intubated due to inability to protect airways, sedated on propofol drip, and given 2 L boluses of NS. Imaging showed diffuse left-sided pneumonia (severe in LLL), likely aspiration given clinical picture and started on ceftriaxone. Otherwise, CT head, CT A/P, and CT cervical spine negative. Other than EtOH levels of 513 u-tox negative, LFTs wnl, lactate 2.3, and total CK 310. Admitted to ICU for further management. 11/13/24: Overnight, patient had a total of 1 L output, 3 L since hospital stay. Patient's Tmax overnight was 99.7. Patient was on max rate of propofol, however was doing well on oxygen requirements, and decided to have a SBT. Patient successfully extubated around 9 AM. Patient is currently on 1 to 2 L nasal cannula. At bedside, patient's and mentioned that patient drink from a bottle of hard liquor, and drinking with friends and later experienced hemoptysis. EMS was called after patient started becoming unresponsive. Will have patient undergo swallow screen at bedside and start diet. Patient's phosphorus today was low, will replace with IV replacement. Pending repeat lactic acid. Patient's Gram stain also grew GPC and gram negative to blood cocci, and will continue with ceftriaxone 1 g for total of 5 days. Pending final sputum culture. Exam Vital Signs Temp Pulse Resp BP Pulse Ox O2 Del Method O2 Flow Rate 98.7 F 110 H 26 H 141/82 H 95 Mechanical Ventilation 15 11/13/24 08:00 11/13/24 09:15 11/13/24 09:15 11/13/24 09:15 11/13/24 09:15 11/13/24 08:00 11/12/24 06:22 FiO2 30 11/13/24 08:00 Narrative Exam General Appearance: Pt in mild acute distress, occasionally coughing, on 1 to 2 L nasal cannula. Alert and awake. HEENT: NC/AT, no scleral icterus, no conjunctival pallor, dry mucous membranes Lungs: CTAB, no wheezes or crackles appreciated CVS: Tachycardic, S1/S2 heard, no murmurs or rubs appreciated ABD: Soft, non-tender, non-distended, BS + in all 4 quadrants EXT: no deformity/edema/lesions/cyanosis/clubbing, radial pulses 2+ BL, DP pulses 2 + BL SKIN: Skin exam normal without any rashes. Neuro: A&O x 3 to name, place, date. No gross neurological deficits. Motor and sensory grossly intact in B/L UL and LL. Psych: Appropriate mood and affect Objective Labs 11/13/24 05:11 11/13/24 05:11 Labs: Laboratory Results - last 24 hr 11/12/24 11/12/24 11/12/24 11:01 17:31 20:54 WBC RBC Hgb Hct MCV MCH MCHC RDW Std Deviation Plt Count Neut % (Auto) Lymph % (Auto) [place] % (Auto) Eos % (Auto) Baso % (Auto) Neut # (Auto) Lymph # (Auto) [place] # (Auto) Eos # (Auto) Baso # (Auto) Immature Gran # (Auto) Absolute Nucleated RBC Immature Gran % Nucleated RBC % Puncture Site ABG pH ABG pCO2 ABG pO2 ABG HCO3 ABG O2 Saturation ABG Base Excess FiO2 Sodium Potassium Chloride Carbon Dioxide Anion Gap BUN Creatinine Estim Creat Clear Calc eGFR BUN/Creatinine Ratio Glucose Calculated Osmolality Lactic Acid 2.3 H 2.6 H Cancelled Calcium Corrected Calcium Phosphorus Magnesium Total Bilirubin AST ALT Alkaline Phosphatase Total Protein Albumin Globulin Albumin/Globulin Ratio 11/12/24 11/13/24 11/13/24 20:54 04:38 05:11 WBC 16.1 H RBC 4.66 Hgb 14.2 Hct 41.7 MCV 90 MCH 30.5 MCHC 34.1 RDW Std Deviation 45.8 H Plt Count 244 Neut % (Auto) 90 H Lymph % (Auto) 4 L [place] % (Auto) 5 Eos % (Auto) 0 Baso % (Auto) 0 Neut # (Auto) 14.4 H Lymph # (Auto) 0.7 L [place] # (Auto) 0.9 H Eos # (Auto) 0.0 Baso # (Auto) 0.1 Immature Gran # (Auto) 0.08 H Absolute Nucleated RBC 0.00 Immature Gran % 1 H Nucleated RBC % 0 Puncture Site Right Radial ABG pH 7.42 D ABG pCO2 37 ABG pO2 107 D ABG HCO3 24 ABG O2 Saturation 99 H ABG Base Excess 0 FiO2 30 Sodium 139 Potassium 4.0 Chloride 104 Carbon Dioxide 21.1 Anion Gap 14 BUN 13 Creatinine 0.6 Estim Creat Clear Calc 119.7 eGFR > 60 BUN/Creatinine Ratio 22 H Glucose 89 Calculated Osmolality 276 Lactic Acid 2.9 H Calcium 9.5 D Corrected Calcium 9.5 D Phosphorus 2.2 L Magnesium 2.0 Total Bilirubin 0.4 AST 31 ALT 14 Alkaline Phosphatase 102 Total Protein 6.8 Albumin 4.2 Globulin 2.6 Albumin/Globulin Ratio 1.6 ABG Interpretation ABG results: 11/12/24 11/13/24 07:51 04:38 ABG pH 7.29 L 7.42 D ABG pCO2 45 37 ABG pO2 250 H 107 D ABG HCO3 22 24 ABG O2 Saturation 100 H 99 H ABG Base Excess -5 L 0 Quality Measures Quality Measures VTE prophylaxis Assessment & Plan Assessment Current Active Medications: Generic Name Dose Route Start Last Admin Trade Name Freq PRN Reason Stop Dose Admin Ceftriaxone Sodium 1,000 mg/ 50 mls @ 100 mls/hr 11/12/24 11:11 11/13/24 08:14 Sodium Chloride IV 11/19/24 11:10 100 mls/hr QDAY OLGA Administration Propofol 1,000 mg in 100 mls @ 1.293 mls/hr 11/13/24 06:00 Diprivan Ivpb IV 12/13/24 05:59 .Q24H PRN PER PROTOCOL Protocol 5 MCG/KG/MIN Sodium Phosphate 22.5 mmol/ 507.5 mls @ 82.778 mls/hr 11/13/24 09:59 Sodium Chloride IV 11/13/24 16:06 X1 ONE Pharmacy Consult 1 each 11/12/24 09:00 Pharmacy Renal Dose Adjustment 1 Ea XX 12/12/24 08:59 QDAY PRN CONSULT Plan Anish Ruiz is a 19-year-old male with no known past medical history who presented to the ED on 11/12 after being found coughing up blood and unconscious after drinking from a bottle of hard liquor. En route, patient given 2 doses of Narcan on scene without response. Upon arrival to ED, patient was intubated due to inability to protect airways and sedated on propofol drip and admitted to ICU. EtOH level, lactate, and total CK were elevated. Utox was negative. In addition to IVF, patient received banana bag, and on IV abx for imaging consistent with diffuse left-sided pneumonia. Remaining imaging, CT head, CT A/P, and CT cervical spine were negative. Patient is stable for downgrade to Med/Tele for further management of acute severe ethanol intoxication. Neurological #Off Sedation Off sedation and extubated on 11/13 morning Cardiovascular #Tachycardia in the setting of recent stress from extubation and infection -Continue to monitor on tele -Treat underlying infection with IV Abx Pulmonary #Aspiration pneumonia vs pneumonitis Imaging shows left-lung pneumona, likely aspiration in setting of severe alcohol intoxication. No recorded fevers, although hypothermic at 95 ?F and initial WBC 17.3 and downtrending Gram Stain grew GPC and GN Diplococci ? Ceftriaxone 1 g IV daily ? Follow-up sputum culture (11/12) Gastrointestinal #Severe ethanol intoxication requiring intubation Found unresponsive on scene and intubated in ED on 11/12. Per aunt, patient does not consume significant amount of alcohol regularly which is consistent with normal LFTs and hemoptysis EtOH levels 513. ? Banana bag x 1 - Chronic Thiamine and Folate not needed as patient only social consumes EtOH, and not in acute withdrawal, patient appears calm at bedside - After patient passes nurse swallow screen, will have patient eat lunch and encourage oral hydration Renal #Anion gap metabolic acidosis, secondary to #Lactic acidosis in setting of ethanol intoxication - improving ABG on 11/12: pH 7.29, pCO2 45, pO2 250 S/p 2 L NS in ED Lactate 2.5 -> 2.3 -> 2.6 --> 2.9 --> 1.7 ? Encourage oral hydration #Hypophosphatemia Patient's Phos level was 2.2 today -Replete with IV Phos #Hypocalcemia-resolved ? Follow-up AM labs after banana bag Heme/onc #Leukocytosis in setting of aspiration pneumonia ? See infectious disease below Endocine No acute/active disease Infectious disease #Aspiration pneumonia vs pneumonitis-improving Imaging shows left-lung pneumona, likely aspiration in setting of severe alcohol intoxication. No recorded fevers, although hypothermic at 95 ?F and initial WBC 17.3 Gram Stain grew GPC and GN Diplococci ? Ceftriaxone 1 g IV daily ? Follow-up sputum culture (11/12) Hospital management: Disposition: Patient was admitted to ICU s/p intubation, and extubated 11/13 morning. Patient safe to downgrade to med/tele this afternoon. Fluids: none, encourage oral intake Diet: regular diet Lines: PIV DVT prophylaxis: will have patient ambulate Aguilar: will order to remove CODE STATUS: full code Patient's plan and care discussed with my attending, Dr. Britt Ding MD PGY-2
[2024-11-13 10:12] LABS: Lactate (Lactic Acid) 1.7 mMol/L (0.4-2.0)
[2024-11-13] MEDS: SOD PHOS ADDITIVE 22.5 MMOL in SODIUM CHLORIDE 0.9% 500 ML 500 ML 82.778 MMOL IV (10:27)
--- NOTE | 2024-11-13 14:51 | ESPR_ITS ---
<Statement entered by Terry Melendez MD - 11/14/24 07:09> Senior Resident Attestation: I supervised/discussed management plan with music industry internship physician Dr. Forbes, and was involved in the care of this patient. I personally saw and examined the patient and discussed the assessment and plan with the entire medicine team, including my attending. I agree with the assessment and plan as documented. Patient's care was discussed with attending physician, Dr. Rivera. Terry Melendez MD PGY-2. Documentation for date of: 11/13/24 Subjective Subjective Interval history: HPI is limited as patient is poor historian and most of history obtained through mother. Bengali translation used for this HPI 11/13/2024: Patient examined at bedside today. Reports that he does not remember much of what happened, denies having ever being hospitalized for similar symptoms including alcohol intoxication. He also says that this the first time he has had hemoptysis. Denies any chest pain or shortness of breath at this time. He denies any history of seizures. He also does not feel agitated diaphoretic orany withdrawal-like symptoms at this point. He currently works in the [employer], does not go to school. No other complaints at this time Exam Vital Signs Temp Pulse Resp BP Pulse Ox O2 Del Method O2 Flow Rate 99.3 F 103 H 29 H 131/80 H 100 Room Air 15 11/13/24 12:00 11/13/24 13:15 11/13/24 13:15 11/13/24 13:15 11/13/24 13:15 11/13/24 12:00 11/12/24 06:22 FiO2 30 11/13/24 08:00 Narrative Exam General: AAOx3, NAD, speaking male, seems a bit unkempt tachycardic HEENT: Moist mucous membranes, conjunctiva clear, EOMI, PERRLA, Cardiovascular: S1, S2, radial pulses +2 bilat, RRR Pulmonary: CTAB bilat no cough, no wheezing GI: No tenderness to light or deep palpitation, no guarding, rigidity, rebound tenderness or distension Extremities: No presence of trace or pitting edema in lower extremities bilaterally, dorsalis pedis pulses +2 bilaterally, fingernails unkempt, has tattoo on right arm Neuro: AAOx3, no focal motor or sensory deficits in the UE or LE bilat Psych: Cooperative Objective Labs 11/14/24 05:18 11/14/24 05:18 Labs: Laboratory Results - last 24 hr 11/12/24 11/12/24 11/12/24 17:31 20:54 20:54 WBC RBC Hgb Hct MCV MCH MCHC RDW Std Deviation Plt Count Neut % (Auto) Lymph % (Auto) [place] % (Auto) Eos % (Auto) Baso % (Auto) Neut # (Auto) Lymph # (Auto) [place] # (Auto) Eos # (Auto) Baso # (Auto) Immature Gran # (Auto) Absolute Nucleated RBC Immature Gran % Nucleated RBC % Puncture Site ABG pH ABG pCO2 ABG pO2 ABG HCO3 ABG O2 Saturation ABG Base Excess FiO2 Sodium Potassium Chloride Carbon Dioxide Anion Gap BUN Creatinine Estim Creat Clear Calc eGFR BUN/Creatinine Ratio Glucose Calculated Osmolality Lactic Acid 2.6 H Cancelled 2.9 H Calcium Corrected Calcium Phosphorus Magnesium Total Bilirubin AST ALT Alkaline Phosphatase Total Protein Albumin Globulin Albumin/Globulin Ratio 11/13/24 11/13/24 11/13/24 04:38 05:11 09:47 WBC 16.1 H RBC 4.66 Hgb 14.2 Hct 41.7 MCV 90 MCH 30.5 MCHC 34.1 RDW Std Deviation 45.8 H Plt Count 244 Neut % (Auto) 90 H Lymph % (Auto) 4 L [place] % (Auto) 5 Eos % (Auto) 0 Baso % (Auto) 0 Neut # (Auto) 14.4 H Lymph # (Auto) 0.7 L [place] # (Auto) 0.9 H Eos # (Auto) 0.0 Baso # (Auto) 0.1 Immature Gran # (Auto) 0.08 H Absolute Nucleated RBC 0.00 Immature Gran % 1 H Nucleated RBC % 0 Puncture Site Right Radial ABG pH 7.42 D ABG pCO2 37 ABG pO2 107 D ABG HCO3 24 ABG O2 Saturation 99 H ABG Base Excess 0 FiO2 30 Sodium 139 Potassium 4.0 Chloride 104 Carbon Dioxide 21.1 Anion Gap 14 BUN 13 Creatinine 0.6 Estim Creat Clear Calc 119.7 eGFR > 60 BUN/Creatinine Ratio 22 H Glucose 89 Calculated Osmolality 276 Lactic Acid 1.7 Calcium 9.5 D Corrected Calcium 9.5 D Phosphorus 2.2 L Magnesium 2.0 Total Bilirubin 0.4 AST 31 ALT 14 Alkaline Phosphatase 102 Total Protein 6.8 Albumin 4.2 Globulin 2.6 Albumin/Globulin Ratio 1.6 ABG Interpretation ABG results: 11/12/24 11/13/24 07:51 04:38 ABG pH 7.29 L 7.42 D ABG pCO2 45 37 ABG pO2 250 H 107 D ABG HCO3 22 24 ABG O2 Saturation 100 H 99 H ABG Base Excess -5 L 0 Quality Measures Quality Measures VTE prophylaxis Assessment & Plan Assessment Current Active Medications: Generic Name Dose Route Start Last Admin Trade Name Freq PRN Reason Stop Dose Admin Ceftriaxone Sodium 1,000 mg/ 50 mls @ 100 mls/hr 11/12/24 11:11 11/13/24 08:14 Sodium Chloride IV 11/19/24 11:10 100 mls/hr QDAY OLGA Administration Sodium Phosphate 22.5 mmol/ 507.5 mls @ 82.778 mls/hr 11/13/24 09:59 11/13/24 10:27 Sodium Chloride IV 11/13/24 16:06 82.778 mls/hr X1 ONE Administration Pharmacy Consult 1 each 11/12/24 09:00 Pharmacy Renal Dose Adjustment 1 Ea XX 12/12/24 08:59 QDAY PRN CONSULT Plan Assessment Anish is a 19-year-old male with no past medical history who is admitted for hemoptysis requiring ICU level of care, alcohol intoxication, and aspiration pneumonia. He is downgraded from the ICU to [facility] today. #Aspiration pneumonia pneumonitis #Leukocytosis Imaging shows left-lung pneumona, likely aspiration in setting of severe alcohol intoxication. No recorded fevers, although hypothermic at 95 ?F and initial WBC 17.3 and downtrending Sputum Gram Stain grew GPC and GN Diplococci Plan: ? Ceftriaxone 1 g IV daily ? Follow-up sputum culture (11/12) ? Follow-up MRSA screen #Hemoptysis, resolved #Severe ethanol intoxication requiring intubation Found unresponsive on scene and intubated in ED on 11/12. Per aunt, patient does not consume significant amount of alcohol regularly which is consistent with normal LFTs and hemoptysis EtOH levels 513 in ED, required intubation with propofol sedation, extubated at this point Was given banana bag We will hold off on additional thiamine and folate at this point CTA was negative for PE Denies seizure hx and has not had any EtOH withdrawal sx Plan: ? Trend with CBC for hemoglobin ? Will hold on CIWA protocol at this point #Hypophosphatemia Will hold on looking up at this time and will repeat Plan: ?Replete with IV sodium-phos ?Trend #Anion gap metabolic acidosis, secondary to #Lactic acidosis in setting of ethanol intoxication, resolved Resolved #Hypocalcemia, resolved #Health Maintenance Disposition: Medsurg DVT prophylaxis: None indicated at this time as pt is ambulatory GI prophylaxis: None indicated at this time Diet: Regular CODE STATUS: Full code Patient seen and care discussed with my senior resident, Dr. Melendez , and my attending physician, Dr. Miguel Forbes, PGY-1 Attending Provider Attestation/Addendum I have examined the patient, reviewed labs and imaging findings, discussed the case with the resident(s), and reviewed entered orders. I agree with the plan of care as outlined in this note. Dr. Miguel MD
[2024-11-14] VITALS: BP 118/73; PULSE 95; RESP 17; TEMP 36.7; O2SAT 96
[2024-11-14 04:00] VITALS: BP 120/69; PULSE 66; RESP 17; TEMP 36.7; O2SAT 98
[2024-11-14 06:00] VITALS: BMI 181.2
[2024-11-14 06:02] LABS: Basophils # (Auto) 0.1 Thou/mm3 (0.0-0.2); Basophils % (Auto) 0 % (0-2.5); Eosinophils # (Auto) 0.1 Thou/mm3 (0.0-0.5); Eosinophils % (Auto) 1 % (0-10); Hematocrit 39.8 % (41.0-53.0); Hemoglobin 13.7 g/dL (13.5-16.0); Immature Granulocytes % (Auto) 0 % (0-0); Immature Granulocytes Auto 0.05 Thou/mm3 (0.00-0.00); Lymphocytes # (Auto) 1.5 Thou/mm3 (1.0-4.8); Lymphocytes % (Auto) 11 % (10-50); Mean Corpuscular HGB Conc 34.4 g/dl (31.0-37.0); Mean Corpuscular Hemoglobin 30.7 pg (25.0-35.0); Mean Corpuscular Volume 89 fL (80-100); Monocytes # (Auto) 1.3 Thou/mm3 (0.0-0.8); Monocytes % (Auto) 9 % (0-12); Neutrophils # (Auto) 10.9 Thou/mm3 (1.8-7.7); Neutrophils % (Auto) 79 % (37-80); Nucleated Red Blood Cell % 0 /100 WBC (0); Platelet Count 233 Thou/mm3 (140-440); RDW Standard Deviation 45.6 fL (35.1-43.9); Red Blood Count 4.46 Miln/mm3 (4.50-5.90); White Blood Count 13.9 Thou/mm3 (4.5-11.0)
[2024-11-14 06:29] LABS: Alanine Aminotransferase 21 U/L (10-49); Albumin, Serum 3.9 gm/dL (3.5-5.0); Albumin/Globulin Ratio 1.5 (1.2-2.2); Alkaline Phosphatase 93 U/L (46-116); Anion Gap 9 (7-16); Aspartate Amino Transferase 36 U/L (0-34); BUN/Creatinine Ratio 15 Ratio (12-20); Bilirubin,Total 0.5 mg/dL (0.3-1.2); Blood Urea Nitrogen 9 mg/dL (9-23); Calcium 9.2 mg/dL (8.3-10.6); Calcium (Corrected) 9.3 mg/dL (8.5-10.1); Carbon Dioxide 27.2 mMol/L (20.0-31.0); Chloride 102 mMol/L (98-107); Creatinine (Component) 0.6 mg/dL (0.6-1.3); Estimated Creatinine Clearance 590.5 mL/min (>60); Globulin 2.6 gm/dL (2.3-3.5); Glucose 101 mg/dL (74-106); Osmolality,Calculated 274 (275-295); Phosphorous 1.9 mg/dL (2.4-5.1); Potassium 3.3 mMol/L (3.4-5.1); Sodium 138 mMol/L (136-145); Total Protein 6.5 gm/dL (5.7-8.2); eGFR > 60 See Note
[2024-11-14 07:36] VITALS: PULSE 88; RESP 100; RESP 20
[2024-11-14 08:00] VITALS: BP 119/72; PULSE 74; RESP 18; TEMP 36.4; O2SAT 96
[2024-11-14] MEDS: cefTRIAXone 1,000 MG in SODIUM CHLORIDE 0.9% (Popper) 50 ML 100 MG IV (08:58)
[2024-11-14] MEDS: NAPH,KPH MBDB 1 PACKET (1.5 GM) 2 PACKET PO (08:59)
[2024-11-14] MEDS: POTASSIUM CHLORIDE 20 mEq TABCR 40 MEQ PO (08:59)
[2024-11-14] MEDS: Milk Of Magnesia Susp 30 ML UDC PO (09:11)
[2024-11-14] MEDS: LACTULOSE SYRUP 20 GM/30 ML UDC PO (11:39)
[2024-11-14 12:00] VITALS: BP 120/73; PULSE 78; RESP 18; TEMP 36.7; O2SAT 98
--- NOTE | 2024-11-14 13:45 | PC.SS ---
Update: SS met with patient with process control board operator present. Patient is alert/oriented. He was able to verify demographics. Patient has presumptive Medi-jace and wants information on how to convert this into full scope. SS contacted financial counselor who will be up to see patient. Patient has d/c orders for today. Patient's aunt was present. SS provided alcohol /drug rehab resources. Patient is amblatory and was admitted for etoh intoxication. Patient states he's never been to any rehab prior. Patient will be discharged home with aunt. Patient states he's been drinking since he was 17 years old. SS will provide uber transportation. Alt medical decision maker per patient is his aunt, Truong Grady @ [phone]
--- NOTE | 2024-11-14 14:58 | ESDS_ITS ---
Planned Discharge Date 11/14/24 DS: Providers Provider Date of admission: 11/12/24 08:50 Primary care physician: Physician No Primary/Family Admitting Provider: Jaylan De La Torre MD Attending Provider on Admission: Ford Rivera MD Attending Provider on DC: Ford Rivera MD Discharging Provider: Salvatore Viveros MD DS: Diagnosis Problem List Completed Was Problem List Reviewed/Reconciled?: Yes Hospital Course Hospital Course Hospital course: The patient is a 19-year-old male with no known past medical history presented to the ED on 11/12/2024 after he was found unconscious. Per patient's aunt at bedside, the patient has been at his friend's house and had 1 bottle of hard liquor, the next morning he was found to be unresponsive with some episodes of hemoptysis after which she was brought to the hospital. EMS gave the patient 2 doses of Narcan, but it was no response. ED, as the patient was not able to protect his airways, he was intubated and admitted to the ICU, on propofol. On 11/13/2024, the patient was successfully extubated and downgraded back to the floors. A chest x-ray showed some suspicion for aspiration pneumonia in the left lower lobe and he was placed on IV antibiotics. Today, the patient is clinically and hemodynamically stable and is medically cleared for discharge. He will continue levofloxacin for 4 more days to cover for aspiration pneumonia/pneumonitis and is recommended to follow-up with his PCP or [facility] within 1 week of discharge. He has also been counseled to avoid alcohol. #Alcohol intoxication #Metabolic acidosis #Aspiration pneumonia/pneumonitis Discharge instructions: Follow up with PCP within 1 week of discharge. If you dont have one, come to the [facility] at [address] [place] [address] Dr [place] [address] [place] [address]. Call [phone] to make an appointment Repeat renal panel prior to PCP appointment Continue levofloxacin for 4 more days Avoid drinking alcohol completely Case was discussed with Dr Melendez PGY-2 and attending physician, Dr Miguel Viveros MD PGY-1 Disclaimer: This note was dictated by speech recognition. Minor errors in accounting director may be present due to voice recognition software. Status at Discharge Overall status at discharge: patient is back to baseline Time Spent with Patient Time attestation: Total time spent providing and/or coordinating discharge services: 45 minutes Time spent: Greater than 30 minutes Exam Vital Signs Temp Pulse Resp BP Pulse Ox O2 Del Method O2 Flow Rate 98.1 F 78 18 120/73 98 Room Air 15 11/14/24 12:00 11/14/24 12:00 11/14/24 12:00 11/14/24 12:00 11/14/24 12:00 11/14/24 12:00 11/12/24 06:22 FiO2 30 11/13/24 08:00 Narrative Exam GENERAL: AAOX3 NEURO: EXPEDITION SUPERVISOR grossly intact, moves extremities x4 HEENT: Moist mucosa. Eyes open, symmetrical, & clear CARDIO: No chest pain on palpation. Heart RRR, no obvious murmurs PULM: No noted coughing/dyspnea. Lungs CTA B/L GI: Abdomen soft, nondistended, no pain on palpation. BSx4 URO/SALES ENABLEMENT CONSULTANT:: No further abnormalities noted. SKIN/MSK/EXT: No wounds/rashes/edema/amputations, no pain on palpation. Pedal pulses present B/L Discharge Plan Plan Patient Disposition: HOME (Self Care) Patient condition on transfer: Stable Care Plan Goals: Follow up with PCP within 1 week of discharge Repeat renal panel prior to PCP appointment Continue levofloxacin for 4 more days Avoid drinking alcohol completely Prescriptions/Referrals Prescriptions/Med Rec: New levofloxacin 750 mg tablet 750 mg PO QDAY 4 Days Qty: 4 0RF Referrals: No Primary/Family,Physician [Primary Care Provider] - Patient/Caregiver Discharge Instructions Other Discharge Activity Instructions:: Follow up with PCP within 1 week of discharge. If you dont have one, come to the [facility] at [address], [place]. Call [phone] to make an appointment Repeat renal panel prior to PCP appointment Continue levofloxacin for 4 more days Avoid drinking alcohol completely Denisa un seguimiento con el astudillo Doctor de cuidados primarios dentro de la semana posterior al jeffy. Si no tiene vashti, venga al [facility] [address], [place]. Llame al [phone] para programar madison luis. Debe repetir el panel renal antes de la luis con astudillo Doctor de cuidados primarios Evite beber alcohol por completo Education Materials: ED Alcohol Intoxication Print Language: Congolese Stand Alone Forms: Nicole Award Info., Patient Portal Info Letter Discharge Order Discharge Orders: Discharge (Routine); Ordered 11/14/24 Ordered By: Salvatore Viveros Quality Discharge Quality Measures VTE prophylaxis MD Attestestation MD Attestation I have examined the patient, reviewed labs and imaging findings, discussed the case with the resident(s), and reviewed entered orders. I agree with the plan of care as outlined in this note. Dr. Miguel MD
[2024-11-14 16:00] VITALS: BP 120/70; PULSE 78; RESP 18; TEMP 37.2; O2SAT 98
== END 2024-11-14 17:16 | disposition home or self-care (01) | DRG 137 ==
LOC: SERX 07:32 → SERHOLD 09:06 → S2SX 10:04 → S3SX 11-14 07:17 → S2SX 11-14 09:26 → S3SX 11-14 09:26
PROVIDERS: Student in an Organized Health Care Education/Training Program; Admitting Provider Internal Medicine Critical Care Medicine; Emergency Provider Emergency Medicine; Visit Provider Student in an Organized Health Care Education/Training Program
DX: J69.0 Pneumonitis due to inhalation of food and vomit (principal); J96.01 Acute respiratory failure with hypoxia; F10.129 Alcohol abuse with intoxication, unspecified; Y90.8 Blood alcohol level of 240 mg/100 ml or more; E87.20 Acidosis, unspecified; E83.51 Hypocalcemia; R04.2 Hemoptysis; E83.39 Other disorders of phosphorus metabolism
CPT/HCPCS: 36415; 36600; 70450; 71275; 72125; 74177; 80048; 80053; 80307; 80320; 81001; 82550; 82803; 83605; 83735; 84100; 84145; 84484; 85025; 85610; 85730; 87077; 87081; 87186; 87205; 94002; 94003; A4649; J0696; J2310; J2704; J3490; J7030; J7040; J7050; Q9967; A9270; G0480

== ENCOUNTER 2024-11-21 09:14 | Outpatient (AMB) | payer MEDICAID, SELFPAY ==
[2024-11-21 09:20] VITALS: BP 107/72; PULSE 68; RESP 16; TEMP 36.6; O2SAT 99
--- NOTE | 2024-11-21 09:20 | ACNOTE_ITS ---
Vital Signs 11/21/24 09:20 Weight 47.684 kg Weight Measurement Method Standing Scale BP 107/72 Blood Pressure Source Automatic Cuff Blood Pressure Location Left Upper Arm Position Sitting Respiration 16 Pulse 68 Pulse Source Monitor Temp 97.8 F Temp Source Temporal Artery Scan Pulse Oximetry (%) 99 Oxygen Delivery Method Room Air Allergies/Meds Allergies & Medications Allergies No Known Allergies Allergy (Verified 11/21/24 09:22) Medication Reconciliation folic acid 1 mg tablet 1 mg PO QDAY 3 months #90 tabs 11/21/24 [Rx] thiamine HCl (vitamin B1) 100 mg tablet 100 mg PO QDAY 3 months #90 tabs 11/21/24 [Rx] MA Intake Visit Data Collection New Patient or Established: Established Patient (seen at [facility] within 3 years) Seen by Clinical Staff ONLY (RN/MA): No Pain Present Currently: No Pain scale:: 0 Pain Scale Used: Kothari-Mason/Numerical Streetcar Operator Required: No PCP or OBGYN visit in last 3 months: No Hx Now: No Do You Feel Safe at Home: Yes Authorities Contacted: N/A Smoking Status Smoking Status: Unknown if ever smoked Immunization / Flu Flu Vaccine in the Last 12 Months: No Flu Vaccine Exclusion Criteria: No Exclusion Criteria Past Medical History Past Medical History CARDIAC: Negative Congestive Heart Failure RESPIRATORY: Negative Chronic Obstructive Pulmonary Disease (COPD) GENITOURINARY: Negative Renal Disease ENDOCRINE: Negative Diabetes Mellitus Type 1 or Diabetes Mellitus Type 2 Social History SMOKING STATUS: Smoking status: Unknown if ever smoked Patient Portal Questionaires Social History Tobacco History Smoking Status: Unknown if ever smoked Domestic Abuse History Do You Feel Safe at Home: Yes Review of Systems Report any current symptoms Only answer those that you have currently: Past Medical History Past Medical History Have you ever been diagnosed with any of the following: Cardiology Problems Congestive Heart Failure: No Respiratory Problems Chronic Obstructive Pulmonary Disease (COPD): No Genital/Urinary Problems Renal Disease: No Endocrine Problems Diabetes Mellitus Type 1: No Diabetes Mellitus Type 2: No History of Present Illness HPI Narrative 19-year-old man without significant past medical history who came to the [facility] for follow-up after hospital admission for alcohol intoxication requiring intubation and aspiration pneumonia. Patient came to the clinic with her aunt. Patient endorses feeling well otherwise he endorsed mild chest tenderness when he coughs, he stated that he finish antibiotics as prescribed for 3 more days after discharge. Denied chest pain during exertion , palpitations, headache, tinnitus, hallucinations, tremors, fever or any other associated symptoms different than the mentioned above. CMP after discharge was within normal limits. Due to patient has alcohol use disorder will offer resources to quit drinking he stated at this moment he will not like to try any medications that he will to try doing by himself. Patient was counseled about importance to quit drinking. Review of Systems Review of Systems Systems Reviewed: All systems reviewed, normal except as documented Objective/Exam Narrative Physical exam: General: No acute distress, well appearing, alert, interactive, underweight HEENT: NC/AT, PERRL, EOMI, Good conjugate gaze, moist mucous membranes, oropharynx clear. Neck: Supple, No masses, No adenopathy, carotid pulse 2+ bilaterally without bruits, No JVD, normal range of motion. Chest: Symmetrical, atraumatic, and with equal expansion , Nontender on palpation no deformity and no crepitus. CVS: S1 and S2 present, Regular rate and rhythm, No murmurs, rubs or gallops perceived during auscultation. Lungs: Normal respiratory effort, CTAB, no wheezing, rhonchi or rales perceived during auscultation, No intercostal or subcostal retraction. Abdomen : Soft, no tenderness to palpation, no guarding ,no rebound, +BS, no organomegaly. Extremities: No edema, warm well perfused, normal tone and ROM, strength and sensation intact, cap refill less than 2, +2 dp equal bilaterally, able to move all 4 extremities spontaneously. Skin: Intact, no rashes, no lesions, no erythema or jaundice noted Neuro: AOx4, no focal neurologic deficits noted, GCS 15 Psych: Appropriate mood and affect. Assessment & Plan Diagnosis / Problem List (1) Alcohol use disorder: Status: Acute Assessment & Plan: Patient was recently discharged from [facility] due to alcohol intoxication and aspiration pneumonia due to alcohol intoxication. Patient endorsed that he is feeling well otherwise denied withdrawal symptoms at this moment he stated he has no drinking since discharge. Patient was counseled about importance of alcohol disorder and the opportunity to ask questions were given as well as if he wanted resources or any medications to decrease alcohol intake. Patient at the moment declined medications and he stated that he will do it with family support. Plan: Follow-up in 2 weeks with CMP ? Thiamine 100 mg p.o. daily ? Folic acid 1 mg p.o. daily (2) Aspiration pneumonia: Status: Acute Assessment & Plan: Resolved. Antibiotics completed. No further treatment indicated. Plan Patient discussed with my attending Dr Tito Aviles MD PGY-3 Disclaimer: Despite multiple revisions, due to the dictation software being used, the document bellow may not be free of grammatical errors including phonetic/typographic errors. However, this does not deter from our commitment to providing health care in the patient's best interest in mind. Orders: Orders Comprehensive Metabolic Panel 2 Weeks F10.90 - Alcohol use, unspecified, uncomplicated Additional Assessment Internal Medicine Attending Note: Case discussed with and agree with note and management plan of Resident Physician as per Resident's Note above. Issues of concern for present visit are as follows: New patient to clinic. Follow-up from hospital admission due to aspiration pneumonia in the context of alcohol intoxication. Has completed antibiotics. Some soreness with cough. No other chest pain. No sputum production. Labs reviewed. Overall stable. Offered resources to help with alcohol abstinence, patient declines at this time. Counseled regarding need for cessation of alcohol consumption. We will supplement thiamine and folic acid empirically. Robin Francis MD Physician Billing New Patient New Patient: E/M Level 3-CPT 35852 Office Procedures [facility] Level of Care Nursing/Assessment Patient Status: Established Patient Nursing Assessment/Reassessment: Medication Reconciliation, Update PMH in EMR and Vital Signs Coordination of Care: Complex Care and Chronic Disease 1-5, Consent,records obtained, informed consent, Education Simp Pt/Fam, Lab and Imaging orders and Staff clarify orders Established Patient Charge Established Patient Point Assignment: 100 Established Patient Point Charge: EP Level 3 (80-115)
== END 2024-11-21 10:08 | disposition home or self-care (01) ==
LOC: HODAHC 09:14
PROVIDERS: Supervising Provider Internal Medicine; Visit Provider Student in an Organized Health Care Education/Training Program
DX: F10.129 Alcohol abuse with intoxication, unspecified (principal)
CPT/HCPCS: 99213; G0463

== ENCOUNTER 2024-12-12 09:05 | Outpatient (AMB) | payer MEDICAID, SELFPAY ==
[2024-12-12 09:11] VITALS: BP 112/72; PULSE 70; RESP 16; TEMP 36.7; O2SAT 97
--- NOTE | 2024-12-12 09:11 | ACNOTE_ITS ---
Vital Signs 12/12/24 09:11 Weight 50.122 kg Weight Measurement Method Standing Scale BP 112/72 Blood Pressure Source Automatic Cuff Blood Pressure Location Left Upper Arm Position Sitting Respiration 16 Pulse 70 Pulse Source Monitor Temp 98.1 F Temp Source Temporal Artery Scan Pulse Oximetry (%) 97 Oxygen Delivery Method Room Air Allergies/Meds Allergies & Medications Allergies No Known Allergies Allergy (Verified 12/12/24 09:12) Medication Reconciliation folic acid 1 mg tablet 1 mg PO QDAY 3 months #90 tabs 11/21/24 [Rx Confirmed 12/12/24] thiamine HCl (vitamin B1) 100 mg tablet 100 mg PO QDAY 3 months #90 tabs 11/21/24 [Rx Confirmed 12/12/24] albuterol sulfate 90 mcg/actuation aerosol inhaler 2 inh inhalation QID PRN shortness of breath or wheezing #8.5 grams 12/12/24 [Rx] MA Intake Visit Data Collection New Patient or Established: Established Patient (seen at [facility] within 3 years) Seen by Clinical Staff ONLY (RN/MA): No Pain Present Currently: No Pain scale:: 0 Pain Scale Used: Kothari-Mason/Numerical Audio Visual Aide Required: No PCP or OBGYN visit in last 3 months: Yes Hx Now: No Do You Feel Safe at Home: Yes Authorities Contacted: N/A Smoking Status Smoking Status: Unknown if ever smoked Immunization / Flu Flu Vaccine in the Last 12 Months: No Flu Vaccine Exclusion Criteria: No Exclusion Criteria Past Medical History Past Medical History CARDIAC: Negative Congestive Heart Failure RESPIRATORY: Negative Chronic Obstructive Pulmonary Disease (COPD) GENITOURINARY: Negative Renal Disease ENDOCRINE: Negative Diabetes Mellitus Type 1 or Diabetes Mellitus Type 2 Social History SMOKING STATUS: Smoking status: Unknown if ever smoked Patient Portal Questionaires Social History Tobacco History Smoking Status: Unknown if ever smoked Domestic Abuse History Do You Feel Safe at Home: Yes Review of Systems Report any current symptoms Only answer those that you have currently: Allergy Symptoms wheezing: Yes Heart & Circulation shortness of breath: Yes Breathing & Lungs cough: Yes Past Medical History Past Medical History Have you ever been diagnosed with any of the following: Cardiology Problems Congestive Heart Failure: No Respiratory Problems Chronic Obstructive Pulmonary Disease (COPD): No Genital/Urinary Problems Renal Disease: No Endocrine Problems Diabetes Mellitus Type 1: No Diabetes Mellitus Type 2: No History of Present Illness HPI Narrative 19-year-old man without significant past medical history who came to the [facility] for follow-up after hospital admission for alcohol intoxication requiring intubation and aspiration pneumonia. Patient came to the clinic with her aunt. Patient endorses feeling well otherwise he endorsed mild chest tenderness when he coughs, he stated that he finish antibiotics as prescribed for 3 more days after discharge. Denied chest pain during exertion , palpitations, headache, tinnitus, hallucinations, tremors, fever or any other associated symptoms different than the mentioned above. CMP after discharge was within normal limits. Due to patient has alcohol use disorder will offer resources to quit drinking he stated at this moment he will not like to try any medications that he will to try doing by himself. Patient was counseled about importance to quit drinking. 12/12/2024: 19-year-old man without significant past medical history who came today to the [facility] for follow-up with labs. Patient endorsed that he has been feeling well denied any complaints like chest pain, palpitations, headache, hallucinations or any other associated symptoms. He stated that sometimes has been feeling the cravings of drinking otherwise he has been avoiding alcohol. He also endorsed that sometimes he has occasional wheezing and shortness of breath in the afternoons and at night associated with a dry cough. CMP showed transaminitis AST 46 and ALT 79 alk phos 125 high upper limit of normal, creatinine was unremarkable. Patient was counseled about alcohol use disorder and importance of avoid alcohol, we offer resources again to help with alcohol abuse and patient declines again this time. We will order follow-up with CMP and hepatitis panel in 1 month. Albuterol inhaler as needed was ordered as well as cocci IgG and IgM to rule out valley fever today patient worked in the [employer] and is at high risk of coccidioidomycosis. We will order as well pulmonary function test with methacholine challenge to rule out asthma. Review of Systems Review of Systems Systems Reviewed: All systems reviewed, normal except as documented Cardiovascular Cardiovascular: Reports dyspnea Respiratory Respiratory: Reports cough, Reports dyspnea and Reports wheezing Allergic/Immunologic Allergic/Immunologic: Reports wheezing Objective/Exam Narrative Physical exam: General: No acute distress, well appearing, alert, interactive, underweight HEENT: NC/AT, PERRL, EOMI, Good conjugate gaze, moist mucous membranes, oropharynx clear. Neck: Supple, No masses, No adenopathy, carotid pulse 2+ bilaterally without bruits, No JVD, normal range of motion. Chest: Symmetrical, atraumatic, and with equal expansion , Nontender on palpation no deformity and no crepitus. CVS: S1 and S2 present, Regular rate and rhythm, No murmurs, rubs or gallops perceived during auscultation. Lungs: Normal respiratory effort, CTAB, no wheezing, rhonchi or rales perceived during auscultation, No intercostal or subcostal retraction. Abdomen : Soft, no tenderness to palpation, no guarding ,no rebound, +BS, no organomegaly. Extremities: No edema, warm well perfused, normal tone and ROM, strength and sensation intact, cap refill less than 2, +2 dp equal bilaterally, able to move all 4 extremities spontaneously. Skin: Intact, no rashes, no lesions, no erythema or jaundice noted Neuro: AOx4, no focal neurologic deficits noted, GCS 15 Psych: Appropriate mood and affect. Assessment & Plan Diagnosis / Problem List (1) Mild shortness of breath: Status: Acute Assessment & Plan: Patient endorse shortness of breath and some dry cough most likely in the afternoons and nights We will order cocci serology to rule out valley fever due to patient has risk factors for coccidioidomycosis due to he works in the [employer]. Plan: follow-up in 1 month with cocci serology IgG and IgM ? Albuterol 90 mics 2 inhalations as needed for shortness of breath ? We will consider pulmonary function test with methacholine if patient symptoms does not improve (2) Transaminitis: Status: Acute Assessment & Plan: From previous visit patient liver enzymes have increase with an AST 46 ALT 79 alk phos 125 higher level of normal. Patient stated that he has not drink since he was discharged from the hospital Will order hepatitis panel to rule out different causes of transaminitis Plan: Follow-up in 1 month with hepatitis panel and CMP (3) Alcohol use disorder: Status: Acute Assessment & Plan: Patient endorse that has not been drinking since the last visit. Otherwise he endorsed occasional cravings but he has avoided drinking alcohol. Patient was counseled about importance of alcohol disorder and the opportunity to ask questions were given as well as if he wanted resources or any medications to decrease alcohol intake. Patient at the moment declined medications and he stated that he will do it with family support. Plan: Follow-up in 1 month with CMP ? Continue thiamine 100 mg p.o. daily ? Continue folic acid 1 mg p.o. daily Plan Patient discussed with my attending Dr Tito Aviles MD PGY-3 Disclaimer: Despite multiple revisions, due to the dictation software being used, the document bellow may not be free of grammatical errors including phonetic/typographic errors. However, this does not deter from our commitment to providing health care in the patient's best interest in mind. Orders: Orders Hepatitis A Antibody, Total* Today R74.01 - Elevation of levels of liver transaminase levels Comprehensive Metabolic Panel Today R74.01 - Elevation of levels of liver transaminase levels Physician Billing Established Patient Established Patient: E/M Level 3-CPT 06559 Established PCPM Established Patient PCPM: E/M 18-39 yrs-CPT 60775 Previous Counseling Previous Counseling: IND 30 min-CPT 30232 Office Procedures [facility] Level of Care Nursing/Assessment Patient Status: Established Patient Nursing Assessment/Reassessment: Medication Reconciliation, Update PMH in EMR and Vital Signs Coordination of Care: Complex Care and Chronic Disease 1-5, Consent,records obtained, informed consent, Education Simp Pt/Fam, Lab and Imaging orders, Results/Orders obtained and Staff clarify orders Established Patient Charge Established Patient Point Assignment: 105 Established Patient Point Charge: EP Level 3 (80-115)
== END 2024-12-12 09:45 | disposition home or self-care (01) ==
LOC: HODAHC 09:05
PROVIDERS: PCP Student in an Organized Health Care Education/Training Program; Referring Provider Student in an Organized Health Care Education/Training Program; Supervising Provider Internal Medicine; Visit Provider Student in an Organized Health Care Education/Training Program
DX: Z71.2 Person consulting for explanation of examination or test findings (principal); R74.01 Elevation of levels of liver transaminase levels; R06.2 Wheezing; R06.02 Shortness of breath; R05.9 Cough, unspecified; Z71.41 Alcohol abuse counseling and surveillance of alcoholic
CPT/HCPCS: 99213; G0463

== ENCOUNTER 2025-01-09 08:36 | Outpatient (AMB) | payer MEDICAID, SELFPAY ==
[2025-01-09 08:52] VITALS: BP 111/60; PULSE 66; RESP 16; TEMP 36.8; O2SAT 98
--- NOTE | 2025-01-09 08:52 | PD.RESCLINIC ---
Vital Signs 01/09/25 08:52 Weight 49.952 kg Weight Measurement Method Standing Scale BP 111/60 Blood Pressure Source Automatic Cuff Blood Pressure Location Left Upper Arm Position Sitting Respiration 16 Pulse 66 Pulse Source Monitor Temp 98.3 F Temp Source Temporal Artery Scan Pulse Oximetry (%) 98 Oxygen Delivery Method Room Air Allergies/Meds Allergies & Medications Allergies No Known Allergies Allergy (Verified 01/09/25 08:53) Medication Reconciliation folic acid 1 mg tablet 1 mg PO QDAY 3 months #90 tabs 11/21/24 [Rx Confirmed 01/09/25] thiamine HCl (vitamin B1) 100 mg tablet 100 mg PO QDAY 3 months #90 tabs 11/21/24 [Rx Confirmed 01/09/25] albuterol sulfate 90 mcg/actuation aerosol inhaler 2 inh inhalation QID PRN shortness of breath or wheezing #8.5 grams 12/12/24 [Rx Confirmed 01/09/25] cetirizine 10 mg tablet (All Day Allergy (cetirizine)) 10 mg PO Q12H PRN allergy symptoms #60 tabs 01/09/25 [Rx] sodium chloride 0.65 % nasal spray aerosol ([place] Saline) 2 spray intranasal BID PRN nasal congestion #50 mL 01/09/25 [Rx] MA Intake Visit Data Collection New Patient or Established: Established Patient (seen at [facility] within 3 years) Seen by Clinical Staff ONLY (RN/MA): No Pain Present Currently: No Pain scale:: 0 Pain Scale Used: Kothari-Mason/Numerical Community Health Nurse Required: No PCP or OBGYN visit in last 3 months: No Hx Now: No Do You Feel Safe at Home: Yes Authorities Contacted: N/A Smoking Status Smoking Status: Unknown if ever smoked Immunization / Flu Flu Vaccine in the Last 12 Months: No Flu Vaccine Exclusion Criteria: No Exclusion Criteria Past Medical History Past Medical History CARDIAC: Negative Congestive Heart Failure RESPIRATORY: Negative Chronic Obstructive Pulmonary Disease (COPD) GENITOURINARY: Negative Renal Disease ENDOCRINE: Negative Diabetes Mellitus Type 1 or Diabetes Mellitus Type 2 Social History SMOKING STATUS: Smoking status: Unknown if ever smoked Patient Portal Questionaires Social History Tobacco History Smoking Status: Unknown if ever smoked Domestic Abuse History Do You Feel Safe at Home: Yes Review of Systems Report any current symptoms Only answer those that you have currently: Past Medical History Past Medical History Have you ever been diagnosed with any of the following: Cardiology Problems Congestive Heart Failure: No Respiratory Problems Chronic Obstructive Pulmonary Disease (COPD): No Genital/Urinary Problems Renal Disease: No Endocrine Problems Diabetes Mellitus Type 1: No Diabetes Mellitus Type 2: No History of Present Illness HPI Narrative 19-year-old man without significant past medical history who came to the [facility] for follow-up after hospital admission for alcohol intoxication requiring intubation and aspiration pneumonia. Patient came to the clinic with her aunt. Patient endorses feeling well otherwise he endorsed mild chest tenderness when he coughs, he stated that he finish antibiotics as prescribed for 3 more days after discharge. Denied chest pain during exertion , palpitations, headache, tinnitus, hallucinations, tremors, fever or any other associated symptoms different than the mentioned above. CMP after discharge was within normal limits. Due to patient has alcohol use disorder will offer resources to quit drinking he stated at this moment he will not like to try any medications that he will to try doing by himself. Patient was counseled about importance to quit drinking. 12/12/2024: 19-year-old man without significant past medical history who came today to the [facility] for follow-up with labs. Patient endorsed that he has been feeling well denied any complaints like chest pain, palpitations, headache, hallucinations or any other associated symptoms. He stated that sometimes has been feeling the cravings of drinking otherwise he has been avoiding alcohol. He also endorsed that sometimes he has occasional wheezing and shortness of breath in the afternoons and at night associated with a dry cough. CMP showed transaminitis AST 46 and ALT 79 alk phos 125 high upper limit of normal, creatinine was unremarkable. Patient was counseled about alcohol use disorder and importance of avoid alcohol, we offer resources again to help with alcohol abuse and patient declines again this time. We will order follow-up with CMP and hepatitis panel in 1 month. Albuterol inhaler as needed was ordered as well as cocci IgG and IgM to rule out valley fever today patient worked in the [employer] and is at high risk of coccidioidomycosis. We will order as well pulmonary function test with methacholine challenge to rule out asthma. 01/09/2025: 19-year-old man without significant past medical history who came today to the [facility] for follow-up with labs. Patient did not did his labs due to easter and he will be doing them today. pateint endosre he was not been drinking but he states that he continues to have dry cough and occasional epixtasis, stated he was feelings feverish 2 days ago but he did not took his temperature. denied nausea, vomiting, headache , anxiety or any other associated symptoms. we will order chest x ray AP/ Lateral and cetirizine po 10 mg bid as well as nasal saline solution for symptoms relieve and follow up in 2-3 weeks with labs result for cocci, hepatitis panel and cmp. if patient symptoms persist we will test for TB . Review of Systems Review of Systems Systems Reviewed: All systems reviewed, normal except as documented Objective/Exam Narrative Physical exam: General: No acute distress, well appearing, alert, interactive, underweight HEENT: NC/AT, PERRL, EOMI, Good conjugate gaze, moist mucous membranes, oropharynx clear, no tonsillar exudates. Neck: Supple, No masses, No adenopathy, carotid pulse 2+ bilaterally without bruits, No JVD, normal range of motion. Chest: Symmetrical, atraumatic, and with equal expansion , Nontender on palpation no deformity and no crepitus. CVS: S1 and S2 present, Regular rate and rhythm, No murmurs, rubs or gallops perceived during auscultation. Lungs: Normal respiratory effort, CTAB, no wheezing, rhonchi or rales perceived during auscultation, No intercostal or subcostal retraction. Abdomen : Soft, no tenderness to palpation, no guarding ,no rebound, +BS, no organomegaly. Extremities: No edema, warm well perfused, normal tone and ROM, strength and sensation intact, cap refill less than 2, +2 dp equal bilaterally, able to move all 4 extremities spontaneously. Skin: Intact, no rashes, no lesions, no erythema or jaundice noted Neuro: AOx4, no focal neurologic deficits noted, GCS 15 Psych: Appropriate mood and affect. Assessment & Plan Diagnosis / Problem List (1) Transaminitis: Status: Acute Assessment & Plan: From previous visit patient liver enzymes have increase with an AST 46 ALT 79 alk phos 125 higher level of normal. Patient stated that he has not drink since he was discharged from the hospital pending hepatitis panel to rule out different causes of transaminitis Plan: Follow-up in 1 month with hepatitis panel and CMP (2) Alcohol use disorder: Status: Acute Assessment & Plan: Patient endorse that has not been drinking since the last visit. denied new cravings of alcoholPatient was counseled about importance of alcohol disorder and the opportunity to ask questions were given as well as if he wanted resources or any medications to decrease alcohol intake. Patient at the moment declined medications and he stated that he will do it with family support. Plan: Follow-up in 1 month with CMP ? Continue thiamine 100 mg p.o. daily ? Continue folic acid 1 mg p.o. daily (3) Mild shortness of breath: Status: Acute Assessment & Plan: Patient continues to endorse shortness of breath and some dry cough most likely in the afternoons and nights pending cocci serology to rule out valley fever due to patient has risk factors for coccidioidomycosis due to he works in the [employer]. if symtomps do not improve and cocci serology is normal we will order Quantiferon to rule out TB Plan: follow-up in 1 month with cocci serology IgG and IgM and Chest Xray ? Albuterol 90 mics 2 inhalations as needed for shortness of breath - cetirizine 10 mg po bid prn ? consider pulmonary function test with methacholine if patient symptoms does not improve - we will consider order quantiferon if symptoms persist (4) Rhinitis, chronic: Status: Acute Assessment & Plan: patient present history of cough dry cough associated to occasional episodes of epixtasis that can be associated to allergic rhinitis Plan: - cetirizine 10 mg po bid prn - nasal spray 2 sprays bid prn Plan Patient discussed with my attending Dr Tito Aviles MD PGY-3 Disclaimer: Despite multiple revisions, due to the dictation software being used, the document bellow may not be free of grammatical errors including phonetic/typographic errors. However, this does not deter from our commitment to providing health care in the patient's best interest in mind. Orders: Orders XR chest 2V 01/09/25 Additional Assessment Internal Medicine Attending Note: Case discussed with and agree with note and management plan of Resident Physician as per Resident's Note above. Issues of concern for present visit are as follows: Follow-up visit. Complaining of dry cough, occasional epistaxis, thinks may have been feverish 2 days ago. Did not get labs from last visit. Patient advised to get labs as we are checking for exposure to coccidioidomycosis as well as a repeat hepatic panel for mild transaminitis. Given continued cough, we will check a chest x-ray. Antihistamine and nasal saline given for other symptoms. Previously ordered pulmonary function testing with methacholine challenge to rule out asthma. If workup is completely negative, we may need to screen for tuberculosis. Patient's weight down slightly even from prior visit. Robin Francis MD Physician Billing Established Patient Established Patient: E/M Level 3-CPT 09195 Office Procedures [facility] Level of Care Nursing/Assessment Patient Status: Established Patient Nursing Assessment/Reassessment: Medication Reconciliation, Update PMH in EMR and Vital Signs Coordination of Care: Complex Care and Chronic Disease 1-5, Consent,records obtained, informed consent, Education Simp Pt/Fam, Lab and Imaging orders, Results/Orders obtained and Staff clarify orders Established Patient Charge Established Patient Point Assignment: 105 Established Patient Point Charge: Level 3 (80-115)
== END 2025-01-09 09:10 | disposition home or self-care (01) ==
LOC: HODAHC 08:36
PROVIDERS: PCP Student in an Organized Health Care Education/Training Program; Referring Provider Student in an Organized Health Care Education/Training Program; Supervising Provider Internal Medicine; Visit Provider Student in an Organized Health Care Education/Training Program
DX: J31.0 Chronic rhinitis (principal); R06.02 Shortness of breath; R74.01 Elevation of levels of liver transaminase levels; F10.10 Alcohol abuse, uncomplicated
CPT/HCPCS: 99213; G0463

== ENCOUNTER 2025-01-30 08:38 | Outpatient (AMB) | payer MEDICAID, SELFPAY ==
--- NOTE | 2025-01-30 08:53 | PD.RESCLINIC ---
Vital Signs 01/30/25 08:57 Height 1.57 m Height Method Stated Weight 49.215 kg Weight Measurement Method Standing Scale BMI 19.9 BP 119/71 Blood Pressure Source Automatic Cuff Blood Pressure Location Right Upper Arm Position Sitting Respiration 18 Pulse 69 Pulse Source Monitor Temp 97.8 F Temp Source Temporal Artery Scan Pulse Oximetry (%) 98 Oxygen Delivery Method Room Air Allergies/Meds Allergies & Medications Allergies No Known Allergies Allergy (Verified 01/30/25 08:58) Medication Reconciliation folic acid 1 mg tablet 1 mg PO QDAY 3 months #90 tabs 11/21/24 [Rx Confirmed 01/30/25] thiamine HCl (vitamin B1) 100 mg tablet 100 mg PO QDAY 3 months #90 tabs 11/21/24 [Rx Confirmed 01/30/25] albuterol sulfate 90 mcg/actuation aerosol inhaler 2 inh inhalation QID PRN shortness of breath or wheezing #8.5 grams 12/12/24 [Rx Confirmed 01/30/25] cetirizine 10 mg tablet (All Day Allergy (cetirizine)) 10 mg PO Q12H PRN allergy symptoms #60 tabs 01/09/25 [Rx Confirmed 01/30/25] sodium chloride 0.65 % nasal spray aerosol ([place] Saline) 2 spray intranasal BID PRN nasal congestion #50 mL 01/09/25 [Rx Confirmed 01/30/25] MA Intake Visit Data Collection New Patient or Established: Established Patient (seen at [facility] [place] within 3 years) Seen by Clinical Staff ONLY (RN/MA): No Pain Present Currently: No Pain scale:: 0 Pain Scale Used: Kothari-Mason/Numerical [employer] Coater Required: No PCP or OBGYN visit in last 3 months: Yes Hx Now: No Do You Feel Safe at Home: Yes Authorities Contacted: N/A Smoking Status Smoking Status: Unknown if ever smoked Immunization / Flu Flu Vaccine in the Last 12 Months: No Flu Vaccine Exclusion Criteria: No Exclusion Criteria Past Medical History Past Medical History CARDIAC: Negative Congestive Heart Failure RESPIRATORY: Negative Chronic Obstructive Pulmonary Disease (COPD) GENITOURINARY: Negative Renal Disease ENDOCRINE: Negative Diabetes Mellitus Type 1 or Diabetes Mellitus Type 2 Social History SMOKING STATUS: Smoking status: Unknown if ever smoked Patient Portal Questionaires Social History Tobacco History Smoking Status: Unknown if ever smoked Domestic Abuse History Do You Feel Safe at Home: Yes Review of Systems Report any current symptoms Only answer those that you have currently: Past Medical History Past Medical History Have you ever been diagnosed with any of the following: Cardiology Problems Congestive Heart Failure: No Respiratory Problems Chronic Obstructive Pulmonary Disease (COPD): No Genital/Urinary Problems Renal Disease: No Endocrine Problems Diabetes Mellitus Type 1: No Diabetes Mellitus Type 2: No History of Present Illness HPI Narrative 19-year-old man without significant past medical history who came to the [facility] for follow-up after hospital admission for alcohol intoxication requiring intubation and aspiration pneumonia. Patient came to the clinic with her aunt. Patient endorses feeling well otherwise he endorsed mild chest tenderness when he coughs, he stated that he finish antibiotics as prescribed for 3 more days after discharge. Denied chest pain during exertion , palpitations, headache, tinnitus, hallucinations, tremors, fever or any other associated symptoms different than the mentioned above. CMP after discharge was within normal limits. Due to patient has alcohol use disorder will offer resources to quit drinking he stated at this moment he will not like to try any medications that he will to try doing by himself. Patient was counseled about importance to quit drinking. 12/12/2024: 19-year-old man without significant past medical history who came today to the [facility] for follow-up with labs. Patient endorsed that he has been feeling well denied any complaints like chest pain, palpitations, headache, hallucinations or any other associated symptoms. He stated that sometimes has been feeling the cravings of drinking otherwise he has been avoiding alcohol. He also endorsed that sometimes he has occasional wheezing and shortness of breath in the afternoons and at night associated with a dry cough. CMP showed transaminitis AST 46 and ALT 79 alk phos 125 high upper limit of normal, creatinine was unremarkable. Patient was counseled about alcohol use disorder and importance of avoid alcohol, we offer resources again to help with alcohol abuse and patient declines again this time. We will order follow-up with CMP and hepatitis panel in 1 month. Albuterol inhaler as needed was ordered as well as cocci IgG and IgM to rule out valley fever today patient worked in the [employer] and is at high risk of coccidioidomycosis. We will order as well pulmonary function test with methacholine challenge to rule out asthma. 01/09/2025: 19-year-old man without significant past medical history who came today to the [facility] for follow-up with labs. Patient did not did his labs due to easter and he will be doing them today. pateint aliare he was not been drinking but he states that he continues to have dry cough and occasional epixtasis, stated he was feelings feverish 2 days ago but he did not took his temperature. denied nausea, vomiting, headache , anxiety or any other associated symptoms. we will order chest x ray AP/ Lateral and cetirizine po 10 mg bid as well as nasal saline solution for symptoms relieve and follow up in 2-3 weeks with labs result for cocci, hepatitis panel and cmp. if patient symptoms persist we will test for TB . 01/30/2025: 19-year-old man with no significant past medical history came today to the [facility] for follow-up with labs. Patient did not do his chest x-ray due to switching insurance recently. Follow-up labs were significant for glucose 111, AST and ALT within normal limits, hepatitis panel was negative, cocci antibodies IgM 1.08 chemical, cocci IgG 0.3, cocci antibodies, not detected. Patient still complaining of cough occasionally without any phlegm he stated inhaler has work for him denied any other associated symptoms like fever, nausea, vomiting chest pain or any other associated symptoms. Pending chest x-ray to assess for possible coccidioidomycosis we ordered repeat cocci IgG and IgM in 2 to 3 weeks different was ordered on follow-up at the [facility] with lab results. Review of Systems Review of Systems Systems Reviewed: All systems reviewed, normal except as documented Objective/Exam Narrative Physical exam: General: No acute distress, well appearing, alert, interactive, underweight HEENT: NC/AT, PERRL, EOMI, Good conjugate gaze, moist mucous membranes, oropharynx clear, no tonsillar exudates. Neck: Supple, No masses, No adenopathy, carotid pulse 2+ bilaterally without bruits, No JVD, normal range of motion. Chest: Symmetrical, atraumatic, and with equal expansion , Nontender on palpation no deformity and no crepitus. CVS: S1 and S2 present, Regular rate and rhythm, No murmurs, rubs or gallops perceived during auscultation. Lungs: Normal respiratory effort, CTAB, no wheezing, rhonchi or rales perceived during auscultation, No intercostal or subcostal retraction. Abdomen : Soft, no tenderness to palpation, no guarding ,no rebound, +BS, no organomegaly. Extremities: No edema, warm well perfused, normal tone and ROM, strength and sensation intact, cap refill less than 2, +2 dp equal bilaterally, able to move all 4 extremities spontaneously. Skin: Intact, no rashes, no lesions, no erythema or jaundice noted Neuro: AOx4, no focal neurologic deficits noted, GCS 15 Psych: Appropriate mood and affect. Assessment & Plan Diagnosis / Problem List (1) Transaminitis: Status: Resolved Assessment & Plan: Patient liver enzymes AST and ALT in last CMP within normal limits, hepatitis panel was negative patient endorsed that has not had any alcohol beverage. Plan: Patient was counseled about alcohol drinking and consequences of severe alcohol ingestion pattern. (2) Alcohol use disorder: Status: Acute Assessment & Plan: Patient endorse that has not been drinking since the last visit. denied new cravings of alcoholPatient was counseled about importance of alcohol disorder and the opportunity to ask questions were given as well as if he wanted resources or any medications to decrease alcohol intake. Patient at the moment declined medications and he stated that he will do it with family support. Plan: ? Continue thiamine 100 mg p.o. daily ? Continue folic acid 1 mg p.o. daily (3) Mild shortness of breath: Status: Acute Assessment & Plan: Patient continues to endorse shortness of breath and some dry cough most likely in the afternoons and nights he stated he feels relief with albuterol inhaler sometimes cocci serology to rule out valley fever was inconclusive for which we will wait for chest x-ray for rule out possible cocci. Follow-up with lab results in 1 month and chest x-ray results. Plan: follow-up in 1 month with cocci serology IgG and IgM, TB QuantiFERON and Chest Xray ? Albuterol 90 mics 2 inhalations as needed for shortness of breath - cetirizine 10 mg po bid prn ? consider pulmonary function test with methacholine if patient symptoms does not improve (4) Rhinitis, chronic: Status: Acute Assessment & Plan: patient present history of cough dry cough associated to occasional episodes of epixtasis that can be associated to allergic rhinitis Plan: - cetirizine 10 mg po bid prn - nasal spray 2 sprays bid prn Plan Patient discussed with my attending Dr Tito Aviles MD PGY-3 Disclaimer: Despite multiple revisions, due to the dictation software being used, the document bellow may not be free of grammatical errors including phonetic/typographic errors. However, this does not deter from our commitment to providing health care in the patient's best interest in mind. Orders: Orders Cocci Serology, Unk History 2 Weeks R06.02 - Shortness of breath Physician Billing Established Patient Established Patient: E/M Level 3-CPT 59399 Established PCPM Established Patient PCPM: E/M 18-39 yrs-CPT 15307 Previous Counseling Previous Counseling: IND 30 min-CPT 27246 Office Procedures [facility] Level of Care Nursing/Assessment Patient Status: Established Patient Nursing Assessment/Reassessment: Medication Reconciliation, Update PMH in EMR and Vital Signs Coordination of Care: Complex Care and Chronic Disease 1-5, Consent,records obtained, informed consent, Education Simp Pt/Fam, Lab and Imaging orders, Results/Orders obtained and Staff clarify orders Established Patient Charge Established Patient Point Assignment: 105 Established Patient Point Charge: EP Level 3 (80-115)
[2025-01-30 08:57] VITALS: BP 119/71; PULSE 69; RESP 18; TEMP 36.6; O2SAT 98; BMI 19.9
== END 2025-01-30 09:19 | disposition home or self-care (01) ==
LOC: HODAHC 08:38
PROVIDERS: PCP Student in an Organized Health Care Education/Training Program; Referring Provider Student in an Organized Health Care Education/Training Program; Supervising Provider Student in an Organized Health Care Education/Training Program; Visit Provider Student in an Organized Health Care Education/Training Program
DX: R06.02 Shortness of breath (principal); J31.0 Chronic rhinitis; F10.10 Alcohol abuse, uncomplicated
CPT/HCPCS: 99213; G0463

== ENCOUNTER → 2025-01-30 | Outpatient (CLI) | payer MEDICAID, SELFPAY ==
--- NOTE | 2025-01-30 09:41 | XR_ITS ---
Examination: PA lateral chest 2 views TECHNIQUE: Upright PA lateral chest 2 views Date and time: January 30, 2025 1001 hours INDICATIONS: Coughing 2 weeks. FINDINGS: Normal heart size. Lungs are clear. Osseous structures are intact. IMPRESSION: No active disease.
== END | disposition home or self-care (01) ==
LOC: CDIM 09:31
PROVIDERS: PCP Student in an Organized Health Care Education/Training Program; Referring Provider Student in an Organized Health Care Education/Training Program; Visit Provider Student in an Organized Health Care Education/Training Program
DX: R05.9 Cough, unspecified (principal)
CPT/HCPCS: 71046

== ENCOUNTER 2025-02-22 08:58 | Outpatient (AMB) | payer MEDICAID, SELFPAY ==
--- NOTE | 2025-02-22 09:18 | PD.RESCLINIC ---
Vital Signs 02/22/25 09:20 Height 1.57 m Height Method Stated Weight 48.704 kg Weight Measurement Method Standing Scale BMI 19.8 BP 108/65 Blood Pressure Source Automatic Cuff Blood Pressure Location Right Upper Arm Position Sitting Respiration 18 Pulse 62 Pulse Source Monitor Temp 97.8 F Temp Source Temporal Artery Scan Pulse Oximetry (%) 98 Oxygen Delivery Method Room Air Allergies/Meds Allergies & Medications Allergies No Known Allergies Allergy (Verified 02/22/25 09:21) Medication Reconciliation folic acid 1 mg tablet 1 mg PO QDAY 3 months #90 tabs 11/21/24 [Rx Confirmed 02/22/25] thiamine HCl (vitamin B1) 100 mg tablet 100 mg PO QDAY 3 months #90 tabs 11/21/24 [Rx Confirmed 02/22/25] cetirizine 10 mg tablet (All Day Allergy (cetirizine)) 10 mg PO Q12H PRN allergy symptoms #60 tabs 01/09/25 [Rx Confirmed 02/22/25] sodium chloride 0.65 % nasal spray aerosol ([place]kin Saline) 2 spray intranasal BID PRN nasal congestion #50 mL 01/09/25 [Rx Confirmed 02/22/25] albuterol sulfate 90 mcg/actuation aerosol inhaler 2 inh inhalation QID PRN shortness of breath or wheezing 1 month #8.5 grams 02/22/25 [Rx] MA Intake Visit Data Collection New Patient or Established: Established Patient (seen at [facility] within 3 years) Seen by Clinical Staff ONLY (RN/MA): No Pain Present Currently: No Pain scale:: 0 Pain Scale Used: [employer] Required: No PCP or OBGYN visit in last 3 months: No Hx Now: No Do You Feel Safe at Home: Yes Authorities Contacted: N/A Smoking Status Smoking Status: Unknown if ever smoked Immunization / Flu Flu Vaccine in the Last 12 Months: No Flu Vaccine Exclusion Criteria: No Exclusion Criteria Past Medical History Past Medical History CARDIAC: Negative Congestive Heart Failure RESPIRATORY: Negative Chronic Obstructive Pulmonary Disease (COPD) GENITOURINARY: Negative Renal Disease ENDOCRINE: Negative Diabetes Mellitus Type 1 or Diabetes Mellitus Type 2 Social History SMOKING STATUS: Smoking status: Unknown if ever smoked Patient Portal Questionaires Social History Tobacco History Smoking Status: Unknown if ever smoked Domestic Abuse History Do You Feel Safe at Home: Yes Review of Systems Report any current symptoms Only answer those that you have currently: Past Medical History Past Medical History Have you ever been diagnosed with any of the following: Cardiology Problems Congestive Heart Failure: No Respiratory Problems Chronic Obstructive Pulmonary Disease (COPD): No Genital/Urinary Problems Renal Disease: No Endocrine Problems Diabetes Mellitus Type 1: No Diabetes Mellitus Type 2: No History of Present Illness HPI Narrative 19-year-old man without significant past medical history who came to the [facility] for follow-up after hospital admission for alcohol intoxication requiring intubation and aspiration pneumonia. Patient came to the clinic with her aunt. Patient endorses feeling well otherwise he endorsed mild chest tenderness when he coughs, he stated that he finish antibiotics as prescribed for 3 more days after discharge. Denied chest pain during exertion , palpitations, headache, tinnitus, hallucinations, tremors, fever or any other associated symptoms different than the mentioned above. CMP after discharge was within normal limits. Due to patient has alcohol use disorder will offer resources to quit drinking he stated at this moment he will not like to try any medications that he will to try doing by himself. Patient was counseled about importance to quit drinking. 12/12/2024: 19-year-old man without significant past medical history who came today to the [facility] for follow-up with labs. Patient endorsed that he has been feeling well denied any complaints like chest pain, palpitations, headache, hallucinations or any other associated symptoms. He stated that sometimes has been feeling the cravings of drinking otherwise he has been avoiding alcohol. He also endorsed that sometimes he has occasional wheezing and shortness of breath in the afternoons and at night associated with a dry cough. CMP showed transaminitis AST 46 and ALT 79 alk phos 125 high upper limit of normal, creatinine was unremarkable. Patient was counseled about alcohol use disorder and importance of avoid alcohol, we offer resources again to help with alcohol abuse and patient declines again this time. We will order follow-up with CMP and hepatitis panel in 1 month. Albuterol inhaler as needed was ordered as well as cocci IgG and IgM to rule out valley fever today patient worked in the [employer] and is at high risk of coccidioidomycosis. We will order as well pulmonary function test with methacholine challenge to rule out asthma. 01/09/2025: 19-year-old man without significant past medical history who came today to the [facility] for follow-up with labs. Patient did not did his labs due to easter and he will be doing them today. pateint aliare he was not been drinking but he states that he continues to have dry cough and occasional epixtasis, stated he was feelings feverish 2 days ago but he did not took his temperature. denied nausea, vomiting, headache , anxiety or any other associated symptoms. we will order chest x ray AP/ Lateral and cetirizine po 10 mg bid as well as nasal saline solution for symptoms relieve and follow up in 2-3 weeks with labs result for cocci, hepatitis panel and cmp. if patient symptoms persist we will test for TB . 01/30/2025: 19-year-old man with no significant past medical history came today to the [facility] for follow-up with labs. Patient did not do his chest x-ray due to switching insurance recently. Follow-up labs were significant for glucose 111, AST and ALT within normal limits, hepatitis panel was negative, cocci antibodies IgM 1.08 chemical, cocci IgG 0.3, cocci antibodies, not detected. Patient still complaining of cough occasionally without any phlegm he stated inhaler has work for him denied any other associated symptoms like fever, nausea, vomiting chest pain or any other associated symptoms. Pending chest x-ray to assess for possible coccidioidomycosis we ordered repeat cocci IgG and IgM in 2 to 3 weeks different was ordered on follow-up at the [facility] with lab results. 02/27/2025: Margaux is a 19 year old male with a past medical history with a past medical history of alcohol use disorder requiring ICU admission and required intubation. Today, patient is here for a follow up for Albuterol refill for shortness of breath. Patient stated he has shortness of breath with exertion, typically occuring while working in the [employer] as a [employer] worker. Shortness of breath noted with worsening dust. Pateint stated he uses inhaler about 2-3 times a week and symptoms resolves. Patient counseled on how to use inhaler. Denied pyrexia, chills, or diaphoresis. Denied chest pain or palpiations. Patient has past medical history of cigarette use since age 14 years of age about 1 pack every two weeks. Patient will be traveleing to [place] to continue and will be there for the next 3 months. Margaux will return to [place] after season is over in [place]. Review of Systems Review of Systems Narrative Review of Systems: General appearance: NO weight change, NO fatigue, NO weakness, NO fever, NO chills, NO night sweats, No cough Skin: NO rash, NO itching, NO sores, NO moles HEENT: NO Trauma, NO nausea, NO vomiting, NO visual changes, NO blurry vision, NO double vision, NO tinnitus, NO vertigo, NO ear discharge, NO rhinorrhea, NO stuffiness, NO sneezing, NO allergy, NO epistaxis. NO Hoarseness, NO sore throat, NO swollen neck. Cardiac: NO Palpitations, NO dyspnea on exertion, NO orthopnea, NO paroxysmal nocturnal dyspnea, NO edema Respiratory: YES Shortness of Breath-upon exertion, NO Wheezing, NO Cough, NO Sputum, NO hemoptysis GI:NO appetite, NO nausea, NO vomiting, NO dysphagia, NO changes in bowel frequency, NO stool color, NO diarrhea, NO constipation, NO hemetemesis, NO hemorrhoids, NO melena, NO hematechezia, NO abdominal pain, NO jaundice Renal: NO frequency, NO hesitancy, NO urgency, NO hematuria, NO nocturia, NO incontinence MSK: NO muscle weakness, NO gout, NO arthritis, NO muscle stiffness Neuro: NO headaches, NO tremors, NO weakness, NO paralysis, NO seizures, NO loss of consciousness, NO numbness. Hem: NO anemia, NO easy bruising/bleeding, NO petechiae, NO purpura Endo: NO heat/cold intolerance, NO excessive sweating, NO polyuria, NO polydipsia, NO polyphagia, NO thyroid problems, NO diabetes Pysch: NO mood, NO anxiety, NO depression Objective/Exam Objective Laboratory: General Appearance: Alert & Oriented X3, thin male who is lying in bed in no acute distress HEENT: Skull symmetrical and atraumatic. Conjunctivae pin and moist. Pupils equal, round, reactive to light and accommodation (PERRL). Cardio: Normal Rate and Rhythm with S1 and S2 heart sounds. No murmurs or extra heart sounds auscultated. No bruits on carotid auscultation. NO peripheral edema or cyanosis. Lungs: Symmetric with good expansion. Chest and back non-tender. Breath sounds vesicular without crackles,NO wheezing or rhonchi Abdomen: Non-tender, Non-distended, Normal Reactive Bowel Sounds Neuro: Alert, cooperative, oriented to person, place, and time. Speech clear. CN grossly intact. Upper motor strength 5/5 and Lower motor strength 5/5. Sensation intact. Assessment & Plan Diagnosis / Problem List (1) Reactive airway disease: Status: Acute Qualifiers: Asthma complication type: with acute exacerbation Asthma persistence: intermittent Asthma severity: mild Qualified Code(s): J45.21 - Mild intermittent asthma with (acute) exacerbation Assessment & Plan: Patient described worsening shortness of breath with physical exertion, specially while working in the [employer] or at night worsened by cold air. Asthma given improvement with albuterol vs cigarette use given past medical history vs Cocci given results are inconclusive, pending follow from [facility] vs heart failure, less likely in orthopnea or PND. Completed anitbiotics. 01/27/2025: Glucose 111, BUN 9, Cr 0.7 Acute Hepatitis Panel: Negative Coccidioides ab, IgM 1.0 high (nomal <0.9) Coccidiodes ab, IgG 0.3 Coccidiodes Antibody by CF <1:2 02/21/2025: Cocci, results inconclusive based on previous labs, NEED T FOLLLOW UP -->Coccidiodes Ab, reflex panel Quantiferon TB gold plus Plan: -Follow up on reflex from [facility] -Rescue inhaler, Albuterol -patient would benefit from PFT, likely after patient returns form [place] (2) Alcohol use disorder: Status: Acute Assessment & Plan: Patient endorse that has not been drinking since the last visit. denied new cravings of alcoholPatient was counseled about importance of alcohol disorder and the opportunity to ask questions were given as well as if he wanted resources or any medications to decrease alcohol intake. Patient at the moment declined medications and he stated that he will do it with family support. Plan: ? Continue thiamine 100 mg p.o. daily ? Continue folic acid 1 mg p.o. daily (3) Transaminitis: Status: Resolved Assessment & Plan: Patient liver enzymes AST and ALT in last CMP within normal limits, hepatitis panel was negative patient endorsed that has not had any alcohol beverage. Plan: Patient counseled on alcohol use disorder. Plan - The patient's plan was discussed with attending Dr. Tito Wellington MD PGY1 Internal Medicine Office Procedures [facility] Level of Care Nursing/Assessment Patient Status: Established Patient Nursing Assessment/Reassessment: Medication Reconciliation, Update PMH in EMR and Vital Signs Coordination of Care: Complex Care and Chronic Disease 1-5, Consent,records obtained, informed consent, Education Simp Pt/Fam and Staff clarify orders Established Patient Charge Established Patient Point Assignment: 85 Established Patient Point Charge: EP Level 3 (80-115)
[2025-02-22 09:20] VITALS: BP 108/65; PULSE 62; RESP 18; TEMP 36.6; O2SAT 98; BMI 19.8
== END 2025-02-22 10:21 | disposition home or self-care (01) ==
LOC: HODAHC 08:58
PROVIDERS: PCP Student in an Organized Health Care Education/Training Program; Referring Provider Student in an Organized Health Care Education/Training Program; Supervising Provider Student in an Organized Health Care Education/Training Program
DX: J45.21 Mild intermittent asthma with (acute) exacerbation (principal); Z71.41 Alcohol abuse counseling and surveillance of alcoholic
CPT/HCPCS: 99213; G0463